=== PATIENT | female | born 1955 | race Caucasian/White ===

== ENCOUNTER 2017-01-13 21:20 | Emergency (ER) | payer MEDICARE, MEDICAID ==
[2017-01-13] MEDS ORDERED: NS 0.9% 1000 ML* 1,000 ML IV ONE (22:29)
[2017-01-13] MEDS ORDERED: Levofloxacin 750 MG IVPREMIX(* 750 MG/150 ML BAG IVPB ONE (22:31)
[2017-01-13] MEDS ORDERED: methylPREDNISolone SOD SUCC* 125 MG 2 ML VIAL IV ONE (22:31)
[2017-01-13] MEDS ORDERED: Albuterol/Ipratropium NEB.SOL* Albuterol 2.5 MG/Ipratropium 0.5 MG 3 ML INH ONE (22:31)
[2017-01-13] MEDS ORDERED: guaiFENesin/CODIEN 100MG-10MG* 5 ML UDC PO ONE (22:53)
[2017-01-14 00:20] LABS: Hematocrit 42 % (35-47); Hemoglobin 13.8 g/dl (12.0-16.0); Mean Corpuscular HGB Conc 33 g/dl (31-36); Mean Corpuscular Hemoglobin 29 pg (27-31); Mean Corpuscular Volume 89 fL (80-97); Mean Platelet Volume 8 um3 (7.4-10.4); Red Blood Count 4.75 10^6/ul (4.0-5.4); Red Cell Distribution Width 14 % (10.5-15); White Blood Count 12.7 10^3/ul (3.5-10.8)
[2017-01-14 00:28] LABS: Albumin 4.1 g/dL (3.2-5.2); BUN/Creatinine Ratio 17.2 (8-20); Calcium 8.7 mg/dL (8.6-10.3); EGFR African American 84.8 (>60); Globulin 3.6 g/dL (2-4); Potassium 3.6 mmol/L (3.5-5.0); Total Bilirubin 0.5 mg/dL (0.2-1.0); Total Protein 7.7 g/dL (6.4-8.9); Troponin I 0.01 ng/mL (<0.04)
[2017-01-14] MEDS ORDERED: Albuterol/Ipratropium NEB.SOL* Albuterol 2.5 MG/Ipratropium 0.5 MG 3 ML INH ONE (00:57)
[2017-01-14] MEDS ORDERED: guaiFENesin/CODIEN 100MG-10MG* 5 ML UDC PO ONE (03:15)
[2017-01-14 04:34] VITALS: BP 133/77
--- NOTE | 2017-01-14 06:36 | ED ---
Agustín, DoctorChetna, scribed for Raven Flores MD on 01/13/17 at 2308 . Shortness of Breath - HPI Summary HPI Summary: 61 year old female arrived to [facility] by ambulance c/o cough for the past two weeks as well as SOB. She reports that her SOB is exacerbated when lying down, and also reports swelling in her lower legs. She recently saw here PCP Dr. Rivers and has been on 5 day Abx beginning four days ago; she has PMHx of asthma and COPD but doesn't regularly take steroids or use oxygen at home. - History of Current Complaint Chief Complaint: EDShortnessOfBreath Time Seen by Provider: 01/13/17 21:48 Hx Obtained From: Patient Onset/Duration: Gradual Onset Current Severity: Moderate Aggrevating Factors: Deep Breaths Associated Signs & Symptoms: Chest Pain w/Cough, Edema - Allergy/Home Medications Allergies/Adverse Reactions: Allergies Allergy/AdvReac Type Severity Reaction Status Date / Time Ampicillin Allergy Severe Swelling Verified 08/13/16 11:54 Penicillins [PCN] Allergy Severe Swelling Verified 08/13/16 11:54 Hydrocodone Allergy Nausea Verified 08/13/16 11:54 Amlodipine AdvReac Shakes Verified 08/13/16 11:54 PMH/Surg Hx/FS Hx/Imm Hx Endocrine/Hematology History: Reports: Hx Thyroid Disease Denies: Hx Diabetes Cardiovascular History: Reports: Hx Congestive Heart Failure, Hx Hypercholesterolemia, Other Cardiovascular Problems/Disorders - cardiac cath 2009 benign Denies: Hx Hypertension, Hx Pacemaker/ICD Respiratory History: Reports: Hx Asthma, Hx Chronic Obstructive Pulmonary Disease (COPD), Hx Sleep Apnea GI History: Reports: Hx Gastroesophageal Reflux Disease - CONTROL WITH MEDS History: Denies: Hx Renal Disease Musculoskeletal History: Reports: Hx Arthritis - KNEES, NECK, Other Musculoskeletal History - 3 CRACKED VERTEBRAES IN BACK, LUMBAR REGION, NO TREATMENT Sensory History: Reports: Hx Contacts or Glasses Denies: Hx Hearing Aid Opthamlomology History: Reports: Hx Contacts or Glasses Psychiatric History: Denies: Hx Panic Disorder - Cancer History Cancer Type, Location and Year: thyroid Hx Chemotherapy: No Hx Radiation Therapy: No - Surgical History Surgery Procedure, Year, and Place: hysterectomy 1979- 09/21/15- 12/22/15 BILATERAL KNEE REPLACEMENTS. bilateral carpal tunnel. lt knee surgery. cosmetic ear surgery but did not work per pt. thyroid removal due to ca Hx Anesthesia Reactions: No Infectious Disease History: No Infectious Disease History: Denies: Traveled Outside the [place] in Last 30 Days - Family History Known Family History: Positive: Cardiac Disease, Respiratory Disease - Social History Alcohol Use: None Substance Use Type: Reports: None Hx Tobacco Use: No Smoking Status (MU): Heavy Every Day Tobacco Smoker Type: Cigarettes Amount Used/How Often: 1/2 ppd Length of Time of Smoking/Using Tobacco: > 40 years Have You Smoked in the Last Year: No Review of Systems Negative: Fever Positive: Chest Pain Positive: Shortness Of Breath, Cough All Other Systems Reviewed And Are Negative: Yes Physical Exam Triage Information Reviewed: Yes Vital Signs On Initial Exam: Initial Vitals Temp Pulse Resp BP Pulse Ox 98.6 F 93 20 116/64 94 01/13/17 21:38 01/13/17 21:38 01/13/17 21:38 01/13/17 21:38 01/13/17 21:38 Vital Signs Reviewed: Yes Appearance: Positive: Well-Appearing, No Pain Distress Skin: Positive: Warm, Skin Color Reflects Adequate Perfusion, Dry Eyes: Positive: EOMI, OSITO ENT: Positive: Pharynx normal, TMs normal Neck: Positive: Supple, Nontender Respiratory/Lung Sounds: Positive: Wheezes - loud expiratory wheezing. Negative : Rales, Rhonchi Cardiovascular: Positive: RRR. Negative: Murmur, Rub Abdomen Description: Positive: Nontender, Soft. Negative: Distended, Guarding Musculoskeletal: Positive: Strength/ROM Intact Neurological: Positive: Sensory/Motor Intact, Alert, Oriented to Person Place, Time, CN Intact II-III Psychiatric: Positive: Affect/Mood Appropriate Diagnostics - Vital Signs Vital Signs Temp Pulse Resp BP Pulse Ox 01/13/17 22:39 95 20 98 01/13/17 21:38 98.6 F 93 20 116/64 94 - Laboratory Lab Results: Lab Results 01/13/17 01/13/17 01/13/17 Range/Units 23:35 23:35 23:35 WBC 12.7 H (3.5-10.8) 10^3/ul RBC 4.75 (4.0-5.4) 10^6/ul Hgb 13.8 (12.0-16.0) g/dl Hct 42 (35-47) % MCV 89 (80-97) fL MCH 29 (27-31) pg MCHC 33 (31-36) g/dl RDW 14 (10.5-15) % Plt Count 286 (150-450) 10^3/ul MPV 8 (7.4-10.4) um3 Neut % (Auto) 49.9 (38-83) % Lymph % (Auto) 31.4 (25-47) % [place] % (Auto) 9.4 H (1-9) % Eos % (Auto) 8.2 H (0-6) % Baso % (Auto) 1.1 (0-2) % Absolute Neuts (auto) 6.3 (1.5-7.7) 10^3/ul Absolute Lymphs (auto) 4.0 (1.0-4.8) 10^3/ul Absolute Monos (auto) 1.2 H (0-0.8) 10^3/ul Absolute Eos (auto) 1.0 H (0-0.6) 10^3/ul Absolute Basos (auto) 0.1 (0-0.2) 10^3/ul Absolute Nucleated RBC 0.01 10^3/ul Nucleated RBC % 0.1 Sodium 138 (133-145) mmol/L Potassium 3.6 (3.5-5.0) mmol/L Chloride 104 (101-111) mmol/L Carbon Dioxide 26 (22-32) mmol/L Anion Gap 8 (2-11) mmol/L BUN 15 (6-24) mg/dL Creatinine 0.87 (0.51-0.95) mg/dL Est GFR ( Amer) 84.8 (>60) Est GFR (Non-Af Amer) 66.0 (>60) BUN/Creatinine Ratio 17.2 (8-20) Glucose 104 H (70-100) mg/dL Lactic Acid 1.0 (0.5-2.0) mmol/L Calcium 8.7 (8.6-10.3) mg/dL Total Bilirubin 0.50 (0.2-1.0) mg/dL AST 16 (13-39) U/L ALT 14 (7-52) U/L Alkaline Phosphatase 58 (34-104) U/L Troponin I 0.01 (<0.04) ng/mL Total Protein 7.7 (6.4-8.9) g/dL Albumin 4.1 (3.2-5.2) g/dL Globulin 3.6 (2-4) g/dL Albumin/Globulin Ratio 1.1 (1-3) Result Diagrams: 01/13/17 23:35 01/13/17 23:35 Lab Statement: Any lab studies that have been ordered have been reviewed, and results considered in the medical decision making process. - Radiology Chest X-Ray Radiology Interpretation Completed By: ED Physician - Negative - EKG 00:19 Cardiac Rate: NL EKG Rhythm: Sinus Rhythm EKG Interpretation: Diffuse T abnormality, LVH Re-Evaluation - Re-Evaluation First Eval Re-Evaluation Time: 01:20 Change: Worse - 90% Oxygen Saturation after taken off oxygen. Pt will be admitted for further care. Second Eval Re-Evaluation Time: 02:50 Change: Improved - Pt feeling much better, able to ambulate. Discussed discharge , pt agreed. Course/Dx - Course Course Of Treatment: Pt with several days of sob and cough, seen by pmd and started on abx, but still with sob. xray neg, mild elevation of wbc. Pt started on steroids and received several nebs here with good results, obv admission ordered but pt wanted to try it at home, with the prednisone and levaquin, - Diagnoses Provider Diagnoses: COPD exacerbation - Physician Notifications Discussed Care of Patient With: 01:15 - Disucssed care of pt with Dr. Berger ( hospitalist). Agrees to admit pt. Discharge - Discharge Plan Condition: Stable Disposition: HOME Prescriptions: Guaifenesin-Codeine [Codeine/Guaifenesin 100-10 mg/5Ml] 1 ac PO Q4HR PRN #14 dose MDD 6 PRN Reason: Cough Levofloxacin TAB* [Levaquin TAB*] 750 mg PO DAILY #6 tab Prednisone [Deltasone] 60 mg PO DAILY #12 tab Patient Education Materials: COPD (Chronic Obstructive Pulmonary Disease) (ED) Referrals: Portillo Rivers MD [Primary Care Provider] - Additional Instructions: Follow up with PCP (Dr. Rivers) in 1-2 days. The documentation as recorded by the Doctor amanda Tahera accurately reflects the service I personally performed and the decisions made by , Raven Flores MD.
--- NOTE | 2017-01-14 07:33 | RAD ---
INDICATION: Cough x2 weeks, worse when lying down. COMPARISON: Most recent comparison chest x-rays dated August 19, 2016 TECHNIQUE: PA and lateral views of the chest were obtained. FINDINGS: The heart and mediastinum are normal in size and contour. The lungs are grossly clear. There is no evidence of large pleural effusion. Visualized bones are normal for the patient's age. There is no radiographic evidence of free air beneath the diaphragm IMPRESSION: No radiographic evidence of acute cardiopulmonary disease.
== END 2017-01-14 04:30 | disposition home or self-care (01) ==
LOC: ED 21:20
DX: J44.1 Chronic obstructive pulmonary disease with (acute) exacerbation (principal); R07.9 Chest pain, unspecified; R06.02 Shortness of breath; F17.210 Nicotine dependence, cigarettes, uncomplicated
CPT/HCPCS: 36415; 71020; 80053; 83605; 84484; 85025; 87040; 93005; 94640; 96374; 99284; A9270-GY; J2930

== ENCOUNTER 2019-01-08 16:34 | Emergency (ER) | payer MEDICARE, MEDICAID ==
[2019-01-08] MEDS ORDERED: oxyCODONE TAB* 5 MG TAB PO ONE (20:34)
--- NOTE | 2019-01-08 20:35 | ED ---
Lower Extremity - HPI Summary HPI Summary: Patient complains of chronic left knee pain times months, with worsening pain over the past 1 month. Denies trauma. Patient has been evaluated by orthopedics in [place], has appointment tomorrow for pain management. Patient denies any other symptoms pain or injury. Denies taking any pain medication for knee pain. - History of Current Complaint Chief Complaint: EDExtremityLower Stated Complaint: "MY LEFT KNEE" PER PT Time Seen by Provider: 01/08/19 19:12 Hx Obtained From: Patient Mechanism Of Injury: Unknown Onset of Pain: Days Onset/Duration: Weeks Severity Initially: Severe Severity Currently: Severe Pain Intensity: 10 Pain Scale Used: 0-10 Numeric Timing: Constant Location: Is Discrete @ Character Of Pain: Aching, Throbbing Associated Signs And Symptoms: Positive: Negative Aggravating Factor(s): Ambulation, Weight Bearing Alleviating Factor(s): Rest Able to Bear Weight: Yes - Allergies/Home Medications Allergies/Adverse Reactions: Allergies Allergy/AdvReac Type Severity Reaction Status Date / Time MS Ampicillin [Ampicillin] Allergy Severe Swelling Verified 01/19/17 11:29 MS Penicillins [PCN] Allergy Severe Swelling Verified 01/19/17 11:29 MS Hydrocodone [Hydrocodone] Allergy Nausea Verified 01/19/17 11:29 MS Amlodipine [Amlodipine] AdvReac Shakes Verified 01/19/17 11:29 PMH/Surg Hx/FS Hx/Imm Hx Endocrine/Hematology History: Reports: Hx Thyroid Disease Denies: Hx Diabetes Cardiovascular History: Reports: Hx Congestive Heart Failure, Hx Hypercholesterolemia, Other Cardiovascular Problems/Disorders - cardiac cath 2009 benign Denies: Hx Hypertension, Hx Pacemaker/ICD Respiratory History: Reports: Hx Asthma, Hx Chronic Obstructive Pulmonary Disease (COPD), Hx Sleep Apnea GI History: Reports: Hx Gastroesophageal Reflux Disease - CONTROL WITH MEDS History: Denies: Hx Renal Disease Musculoskeletal History: Reports: Hx Arthritis - KNEES, NECK, Other Musculoskeletal History - 3 CRACKED VERTEBRAES IN BACK, LUMBAR REGION, NO TREATMENT Sensory History: Reports: Hx Contacts or Glasses Denies: Hx Hearing Aid Opthamlomology History: Reports: Hx Contacts or Glasses Psychiatric History: Denies: Hx Panic Disorder - Cancer History Cancer Type, Location and Year: thyroid Hx Chemotherapy: No Hx Radiation Therapy: No - Surgical History Surgery Procedure, Year, and Place: hysterectomy 1979- 09/21/15- 12/22/15 BILATERAL KNEE REPLACEMENTS. bilateral carpal tunnel. lt knee surgery. cosmetic ear surgery but did not work per pt. thyroid removal due to ca Hx Anesthesia Reactions: No Infectious Disease History: No Infectious Disease History: Denies: Traveled Outside the [place] in Last 30 Days - Family History Known Family History: Positive: Cardiac Disease, Respiratory Disease - Social History Alcohol Use: None Substance Use Type: Reports: None Hx Tobacco Use: No Smoking Status (MU): Heavy Every Day Tobacco Smoker Type: Cigarettes Amount Used/How Often: 1/2 ppd Length of Time of Smoking/Using Tobacco: > 40 years Have You Smoked in the Last Year: No Review of Systems Constitutional: Negative Eyes: Negative ENT: Negative Cardiovascular: Negative Respiratory: Negative Gastrointestinal: Negative Genitourinary: Negative Musculoskeletal: Negative Skin: Other Neurological: Negative Psychological: Normal All Other Systems Reviewed And Are Negative: Yes Physical Exam - Summary Physical Exam Summary: No swelling, erythema, ecchymosis, deformity noted to left knee. No effusion. 90 of flexion and extension with some pain. PMS intact distally. Triage Information Reviewed: Yes Vital Signs On Initial Exam: Initial Vitals Temp Pulse Resp BP Pulse Ox 96.6 F 69 18 150/69 97 01/08/19 16:39 01/08/19 16:39 01/08/19 16:39 01/08/19 16:39 01/08/19 16:39 Vital Signs Reviewed: Yes Appearance: Positive: Well-Appearing Skin: Positive: Warm Head/Face: Positive: Normal Head/Face Inspection Eyes: Positive: Normal Neck: Positive: Supple Respiratory/Lung Sounds: Positive: Clear to Auscultation Cardiovascular: Positive: Normal Abdomen Description: Positive: Nontender Musculoskeletal: Positive: Normal Neurological: Positive: Normal Psychiatric: Positive: Normal AVPU Assessment: Alert - Yenifer Coma Scale Best Eye Response: 4 - Spontaneous Best Motor Response: 6 - Obeys Commands Best Verbal Response: 5 - Oriented Coma Scale Total: 15 Diagnostics - Vital Signs Vital Signs Temp Pulse Resp BP Pulse Ox 01/08/19 16:39 96.6 F 69 18 150/69 97 - Laboratory Lab Statement: Any lab studies that have been ordered have been reviewed, and results considered in the medical decision making process. Lower Extremity Course/Dx - Course Course Of Treatment: Patient complains of chronic left knee pain times months, with worsening pain over the past 1 month. Denies trauma. Patient has been evaluated by orthopedics in [place], has appointment tomorrow for pain management. Patient denies any other symptoms pain or injury. Denies taking any pain medication for knee pain. Physical exam:No swelling, erythema, ecchymosis, deformity noted to left knee. No effusion. 90 of flexion and extension with some pain. PMS intact distally. Vital signs within normal limits. X-ray left knee unremarkable for acute process. Per [facility] pt has multiple prescriptions for opiates with multiple providers over the past 6 months. Advised patient to follow up with her orthopedics appointment tomorrow as scheduled. - Diagnoses Provider Diagnoses: Chronic knee pain Discharge - Sign-Out/Discharge Documenting (check all that apply): Patient Departure Patient Received Moderate/Deep Sedation with Procedure: No - Discharge Plan Condition: Stable Disposition: HOME Patient Education Materials: Knee Pain (ED) Referrals: No Primary Care Phys,NOPCP [Primary Care Provider] - Additional Instructions: Follow-up with your orthopedic appointment as scheduled tomorrow for further evaluation. Return to the ED for any new or worsening symptoms. - Billing Disposition and Condition Condition: STABLE Disposition: Home
[2019-01-08 21:15] VITALS: BP 148/87
== END 2019-01-08 20:47 | disposition home or self-care (01) ==
LOC: ED 16:34
DX: M25.562 Pain in left knee (principal); G89.29 Other chronic pain; F17.210 Nicotine dependence, cigarettes, uncomplicated; E07.9 Disorder of thyroid, unspecified; I50.9 Heart failure, unspecified; E78.00 Pure hypercholesterolemia, unspecified; J44.9 Chronic obstructive pulmonary disease, unspecified; K21.9 Gastro-esophageal reflux disease without esophagitis
CPT/HCPCS: 99281

== ENCOUNTER 2019-03-20 13:09 | Emergency (ER) | payer MEDICARE, MEDICAID ==
[2019-03-20] MEDS ORDERED: Albuterol/Ipratropium NEB.SOL* Albuterol 2.5 MG/Ipratropium 0.5 MG 3 ML INH ONE (13:29)
--- NOTE | 2019-03-20 13:51 | ED ---
Shortness of Breath - HPI Summary HPI Summary: This patient is a 63 year old F brought in by EMS presenting to [facility] with a chief complaint of shortness of breath. The patient reports being sick from . She reports having a cough that hurts in her L anterior chest and ribs when she coughs. Per triage, the pain is described as it feels like an elephant is sitting on my chest and is rated a 10/10 in severity. The patients cough is nonproductive. She denies any fevers, vomiting, diarrhea, and nausea. She was directed to a diet consultant from her PCP but cannot go until April and was directed here for a CXR. Symptoms are alleviated by nothing. The symptoms are aggravated by nothing. The patient has a Hx of COPD but was not directed to use an 02 tank as she is typically at 95% saturation on room air. - History of Current Complaint Chief Complaint: EDShortnessOfBreath Time Seen by Provider: 03/20/19 13:15 Hx Obtained From: Patient, EMS Onset/Duration: Lasting Weeks - 2, Still Present Timing: Constant Current Severity: Severe Dyspnea At: Rest Aggrevating Factors: Nothing Alleviating Factors: Nothing Associated Signs & Symptoms: Negative - Negative: vomiting, diarrhea, nausea, Cough (Nonproductive) - Positive, Chest Pain w/Cough, Fever - Negative - Allergy/Home Medications Allergies/Adverse Reactions: Allergies Allergy/AdvReac Type Severity Reaction Status Date / Time MS Ampicillin [Ampicillin] Allergy Severe Swelling Verified 01/19/17 11:29 MS Penicillins [PCN] Allergy Severe Swelling Verified 01/19/17 11:29 MS Hydrocodone [Hydrocodone] Allergy Nausea Verified 01/19/17 11:29 MS Amlodipine [Amlodipine] AdvReac Shakes Verified 01/19/17 11:29 Home Medications: Home Medications Albuterol 2.5MG/3ML (0.083%)* [Ventolin 2.5 MG/3 ML NEB.MARIZA*] 2.5 mg INH Q6H PRN 03/20/19 [History Confirmed 03/20/19] Albuterol HFA INHALER* [Ventolin HFA Inhaler*] 2 puff INH BID PRN 03/20/19 [ History Confirmed 03/20/19] Levothyroxine TAB* [Synthroid 150 MCG TAB*] 150 mcg PO DAILY 03/20/19 [History Confirmed 03/20/19] Sertraline* [Zoloft*] 100 mg PO DAILY 03/20/19 [History Confirmed 03/20/19] PMH/Surg Hx/FS Hx/Imm Hx Previously Healthy: No Endocrine/Hematology History: Reports: Hx Thyroid Disease Denies: Hx Diabetes Cardiovascular History: Reports: Hx Congestive Heart Failure, Hx Hypercholesterolemia, Other Cardiovascular Problems/Disorders - cardiac cath 2009 benign Denies: Hx Hypertension, Hx Pacemaker/ICD Respiratory History: Reports: Hx Asthma, Hx Chronic Obstructive Pulmonary Disease (COPD), Hx Sleep Apnea GI History: Reports: Hx Gastroesophageal Reflux Disease - CONTROL WITH MEDS History: Denies: Hx Renal Disease Musculoskeletal History: Reports: Hx Arthritis - KNEES, NECK, Other Musculoskeletal History - 3 CRACKED VERTEBRAES IN BACK, LUMBAR REGION, NO TREATMENT Sensory History: Reports: Hx Contacts or Glasses Denies: Hx Hearing Aid Opthamlomology History: Reports: Hx Contacts or Glasses Psychiatric History: Denies: Hx Panic Disorder - Cancer History Cancer Type, Location and Year: thyroid Hx Chemotherapy: No Hx Radiation Therapy: No - Surgical History Surgery Procedure, Year, and Place: hysterectomy 1979- 09/21/15- 12/22/15 BILATERAL KNEE REPLACEMENTS. bilateral carpal tunnel. lt knee surgery. cosmetic ear surgery but did not work per pt. thyroid removal due to ca Hx Anesthesia Reactions: No Infectious Disease History: No Infectious Disease History: Denies: Traveled Outside the [place] in Last 30 Days - Family History Known Family History: Positive: Cardiac Disease, Respiratory Disease - Social History Alcohol Use: None Hx Substance Use: No Substance Use Type: Reports: None Hx Tobacco Use: Yes Smoking Status (MU): Light Every Day Tobacco Smoker Type: Cigarettes Amount Used/How Often: 1/2 ppd Length of Time of Smoking/Using Tobacco: > 40 years Have You Smoked in the Last Year: No Review of Systems Negative: Fever Positive: Chest Pain - Secondary to coughing Positive: Shortness Of Breath, Cough - nonproductive Negative: Vomiting, Diarrhea, Nausea All Other Systems Reviewed And Are Negative: Yes Physical Exam - Summary Physical Exam Summary: VITAL SIGNS: Reviewed. GENERAL: Patient is a well-developed and nourished Female who is lying comfortable in the stretcher. Patient is not in any acute respiratory distress. She is able to speak clearly. HEAD AND FACE: No signs of trauma. No ecchymosis, hematomas or skull depressions. No sinus tenderness. EYES: PERRLA, EOMI x 2, No injected conjunctiva, no nystagmus. EARS: Hearing grossly intact. Ear canals and tympanic membranes are within normal limits. MOUTH: Oropharynx within normal limits. NECK: Supple, trachea is midline, no adenopathy, no JVD, no carotid bruit, no c- spine tenderness, neck with full ROM. CHEST: Symmetric, no tenderness at palpation LUNGS: Crackles are evident in the base of the lungs. Diffuse wheezing. CVS: Regular rate and rhythm, S1 and S2 present, no murmurs or gallops appreciated. ABDOMEN: Soft, non-tender. No signs of distention. No rebound no guarding, and no masses palpated. Bowel sounds are normal. EXTREMITIES: FROM in all major joints, no edema, no cyanosis or clubbing. NEURO: Alert and oriented x 3. No acute neurological deficits. Speech is normal and follows commands. SKIN: Dry and warm Triage Information Reviewed: Yes Vital Signs On Initial Exam: Initial Vitals Temp Pulse Resp BP Pulse Ox 98.8 F 120 20 133/79 92 03/20/19 13:16 03/20/19 13:16 03/20/19 13:16 03/20/19 13:16 03/20/19 13:16 Vital Signs Reviewed: Yes Diagnostics - Vital Signs Vital Signs Temp Pulse Resp BP Pulse Ox 03/20/19 13:33 88 14 92 03/20/19 13:16 98.8 F 120 20 133/79 92 - Laboratory Result Diagrams: 03/20/19 13:42 03/20/19 13:42 Lab Statement: Any lab studies that have been ordered have been reviewed, and results considered in the medical decision making process. - Radiology CXR Radiology Interpretation Completed By: Radiologist Summary of Radiographic Findings: No active cardiopulmonary disease is noted. ED Physician has reviewed this report. - EKG 1351 Cardiac Rate: NL EKG Rhythm: Sinus Rhythm Summary of EKG Findings: Normal sinus rhythm at [address] elevation. Re-Evaluation - Re-Evaluation First Eval Re-Evaluation Time: 16:29 Change: Improved Comment: Patient was informed about discharge plan. She is agreeable and has no wheezing upon discharge. Course/Dx - Course Assessment/Plan: This patient is a 63-year-old female who presents to the emergency department with chief complaint of shortness of breath. She reports that she has been having the symptoms for the last 2 weeks including and productive cough at without any fevers. She went to see the primary care physician today and they sent her here for further workup and management. The patient has past medical history significant for COPD without any oxygen, hypothyroidism and is status post left knee arthroplasty. Test results without any significant abnormality except for glucose of 119, calcium 7.9 and CRP of 29.16. Chest x-ray impression: No active cardiopulmonary disease. In the ER course physical exam the patient has diffuse wheezing. The patient was given multiple DuoNebs and Solu-Medrol and the symptoms have significantly improved. ABG shows a pH of 7.42, PCO2 37, PO2 76, O2 sat is 98.3. Reexamination at 16:30 the lungs are clear to auscultation bilaterally without any wheezing. Patient is eating and drinking without any nausea and vomiting. I discussed all the findings and test results with the patient. Patient was instructed to return to the emergency room immediately if any of the symptoms return worsens. Plan of care was discussed with the patient and understands and agrees. All questions were answered at patient satisfaction. There were no further complaints or concerns. Lung exam before discharge: CTA B/L. Good air exchange. No wheezing or crackles heard. CVS: S1 and S2 present. No murmurs appreciated. Patient is alert and oriented x 3. Patient is hemodynamically stable. Patient will be discharged home with follow up PCP in the next 2-3 days - Diagnoses Provider Diagnoses: COPD exacerbation Discharge - Sign-Out/Discharge Documenting (check all that apply): Patient Departure - discharge Patient Received Moderate/Deep Sedation with Procedure: No - Discharge Plan Condition: Stable Disposition: HOME Prescriptions: guaiFENesin ER TAB [Mucinex*] 600 mg PO BID #6 tab.er predniSONE TAB* [Deltasone 20 MG TAB*] 40 mg PO DAILY #8 tab Patient Education Materials: COPD (Chronic Obstructive Pulmonary Disease) (ED) Referrals: [facility] [Outside] - 3 Days Additional Instructions: FOLLOW UP WITH YOUR PRIMARY CARE PROVIDER WITHIN 3 DAYS. RETURN TO THE ED FOR ANY WORSENING OR NEW SYMPTOMS. - Billing Disposition and Condition Condition: STABLE Disposition: Home - Attestation Statements Document Initiated by Scribe: Yes Documenting Scribe: Mathew Medina Provider For Whom Scribe is Documenting (Include Credential): Willis Hardin MD Scribe Attestation: Mathew Randolph and Tarik Medina, scribed for Willis Hardin MD on 03/22/19 at 1147. Scribe Documentation Reviewed: Yes Provider Attestation: The documentation as recorded by the scribe, Mathew Schultz and Tarik Medina accurately reflects the service I personally performed and the decisions made by , Willis Hardin MD Status of Scribe Document: Viewed
[2019-03-20 14:08] LABS: ABS Eosinophils 0.4 10^3/ul (0-0.6); ABS Lymphocytes 3.1 10^3/ul (1.0-4.8); ABS Monocytes 1.1 10^3/ul (0-0.8); ABS Neutrophils 4.5 10^3/ul (1.5-7.7); Eosinophil % 4.9 %; Hematocrit 39 % (35-47); Hemoglobin 13.1 g/dL (12.0-16.0); Lymphocyte % 33.8 %; Mean Corpuscular HGB Conc 34 g/dL (31-36); Mean Corpuscular Hemoglobin 29 pg (27-31); Mean Corpuscular Volume 86 fL (80-97); Mean Platelet Volume 7.7 fL (7.4-10.4); Nucleated Red Blood Cells % 0.1; Platelet Count 265 10^3/uL (150-450); Red Cell Distribution Width 14 % (10.5-15)
[2019-03-20 14:22] LABS: Albumin 3.9 g/dL (3.2-5.2); Albumin/Globulin Ratio 1.3 (1-3); BUN/Creatinine Ratio 13.7 (8-20); C Reactive Protein 29.16 mg/L (<8.01); Calcium 7.9 mg/dL (8.6-10.3); EGFR African American 71.7 (>60); EGFR Non-African American 59.2 (>60); Globulin 3.1 g/dL (2-4); Potassium 3.5 mmol/L (3.5-5.0); Total Bilirubin 0.5 mg/dL (0.2-1.0)
[2019-03-20] MEDS ORDERED: Ketorolac INJ* 30 MG/ML 1 ML VIAL IV PUSH ONE (14:48)
[2019-03-20] MEDS ORDERED: methylPREDNISolone 125 MG* 2 ML VIAL IV ONE (15:42)
[2019-03-20 17:07] VITALS: BP 134/76
== END 2019-03-20 17:06 | disposition home or self-care (01) ==
LOC: ED 13:09
DX: J44.1 Chronic obstructive pulmonary disease with (acute) exacerbation (principal); R05 Cough; E03.9 Hypothyroidism, unspecified; K21.9 Gastro-esophageal reflux disease without esophagitis; Z96.653 Presence of artificial knee joint, bilateral; Z88.5 Allergy status to narcotic agent; Z88.0 Allergy status to penicillin; Z88.8 Allergy status to other drugs, medicaments and biological substances; F17.210 Nicotine dependence, cigarettes, uncomplicated
CPT/HCPCS: 36415; 71046; 80053; 82550; 82553; 82803; 83605; 83880; 84484; 85025; 86140; 87040; 93005; 96374; 96375; 99283; A9270-GY; J1885; J2930

== ENCOUNTER 2019-04-16 18:32 | Inpatient (IN) | payer MEDICARE, MEDICAID ==
--- NOTE | 2019-04-16 18:58 | ED ---
Complex/Multi-Sys Presentation - HPI Summary HPI Summary: A 64 y/o F brought in by ambulance presents to ED c/o SOB onset last night. Associated sx: fatigue, CP, fever, cough, cold flashes, face flushing. Shes been resting all day today due to feeling fatigued. Patient sleeps on her side. She took all her medications today. She does not have home O2. - History Of Current Complaint Chief Complaint: EDChestPainROMI Hx Obtained From: Patient Onset/Duration: Lasting Days - yesterday, Still Present Timing: Constant Associated Signs And Symptoms: Positive: SOB, Cough, Chest Pain, Fever, Other - pos: fatigue, cold flashes, face flushing - Allergies/Home Medications Allergies/Adverse Reactions: Allergies Allergy/AdvReac Type Severity Reaction Status Date / Time amlodipine Allergy Constipatio Verified 04/16/19 18:55 n ampicillin Allergy Swelling Verified 04/16/19 18:55 hydrocodone Allergy Nausea Verified 04/16/19 18:55 Penicillins Allergy Swelling Verified 04/16/19 18:55 PMH/Surg Hx/FS Hx/Imm Hx Previously Healthy: No Endocrine/Hematology History: Reports: Hx Thyroid Disease Denies: Hx Diabetes Cardiovascular History: Reports: Hx Congestive Heart Failure, Hx Hypercholesterolemia, Other Cardiovascular Problems/Disorders - cardiac cath 2009 benign Denies: Hx Hypertension, Hx Pacemaker/ICD Respiratory History: Reports: Hx Asthma, Hx Chronic Obstructive Pulmonary Disease (COPD), Hx Sleep Apnea GI History: Reports: Hx Gastroesophageal Reflux Disease - CONTROL WITH MEDS History: Denies: Hx Renal Disease Musculoskeletal History: Reports: Hx Arthritis - KNEES, NECK, Other Musculoskeletal History - 3 CRACKED VERTEBRAES IN BACK, LUMBAR REGION, NO TREATMENT Sensory History: Reports: Hx Contacts or Glasses Denies: Hx Hearing Aid Opthamlomology History: Reports: Hx Contacts or Glasses Psychiatric History: Denies: Hx Panic Disorder - Cancer History Cancer Type, Location and Year: thyroid Hx Chemotherapy: No Hx Radiation Therapy: No - Surgical History Surgery Procedure, Year, and Place: hysterectomy 1979- 09/21/15- 12/22/15 BILATERAL KNEE REPLACEMENTS. bilateral carpal tunnel. lt knee surgery. cosmetic ear surgery but did not work per pt. thyroid removal due to ca Hx Anesthesia Reactions: No Infectious Disease History: No Infectious Disease History: Denies: Traveled Outside the [place] in Last 30 Days - Family History Known Family History: Positive: Cardiac Disease, Respiratory Disease - Social History Occupation: Disabled Lives: Alone Alcohol Use: None Hx Substance Use: No Substance Use Type: Reports: None Hx Tobacco Use: Yes Smoking Status (MU): Light Every Day Tobacco Smoker Type: Cigarettes Amount Used/How Often: 1/2 ppd Length of Time of Smoking/Using Tobacco: > 40 years Have You Smoked in the Last Year: No Review of Systems Positive: Fever, Fatigue, Other - pos: cold flashes, face flushed Positive: Chest Pain Positive: Shortness Of Breath, Cough All Other Systems Reviewed And Are Negative: Yes Physical Exam - Summary Physical Exam Summary: Appearance: The patient is well-nourished in no acute distress and in no acute pain. Skin: The skin is warm and dry and skin color reflects adequate perfusion. HEENT: The head is normocephalic and atraumatic. The pupils are equal and reactive. The conjunctivae are clear and without drainage. Nares are patent and without drainage. Mouth reveals moist mucous membranes and the throat is without erythema and exudate. The external ears are intact. The ear canals are patent and without drainage. The tympanic membranes are intact. Neck: the neck is supple with full range of motion and non-tender. There are no carotid bruits. There is no neck vein distension. Respiratory: Chest is non-tender. Lungs sounds are reduced. Cardiovascular: Heart is tachy. There is no murmur or rub auscultated. There is peripheral edema. Pulses are symmetrical and equal. Abdomen: The abdomen is soft and non-tender. There are normal bowel sounds heard in all four quadrants and there is no organomegaly palpated. Musculoskeletal: There is no back tenderness noted. Extremities are non-tender with full range of motion. There is good capillary refill. There is peripheral edema. No calf tenderness elicited. Neurological: Patient is alert and oriented to person, place and time. The patient has symmetrical motor strength in all four extremities. Cranial nerves are grossly intact. Deep tendon reflexes are symmetrical and equal in all four extremities. Psychiatric: The patient has an appropriate affect and does not exhibit any anxiety or depression. Triage Information Reviewed: Yes Vital Signs On Initial Exam: Initial Vitals Temp Pulse Resp BP Pulse Ox 97 F 106 22 87/52 94 04/16/19 18:48 04/16/19 18:48 04/16/19 18:48 04/16/19 18:48 04/16/19 18:48 Vital Signs Reviewed: Yes Diagnostics - Vital Signs Vital Signs Temp Pulse Resp BP Pulse Ox 04/16/19 18:53 96/59 04/16/19 18:48 97 F 106 22 87/52 94 - Laboratory Result Diagrams: 04/16/19 19:16 04/16/19 19:16 Lab Statement: Any lab studies that have been ordered have been reviewed, and results considered in the medical decision making process. - Radiology CXR Radiology Interpretation Completed By: ED Physician Summary of Radiographic Findings: R sided infiltrate, possible L base infiltrate. - EKG 1911 Cardiac Rate: Tachycardia - 104 bpm EKG Rhythm: Sinus Tachycardia ST Segment: Normal Ectopy: None Summary of EKG Findings: No STEMI. Re-Evaluation - Re-Evaluation 1 Re-Evaluation Time: 20:04 Change: Improved Comment: Discussing results with patient and plans for admission. She is agreeable with this. Patient is doing better on O2. Complex Multi-Symp Course/Dx Course Of Treatment: Ms. Coats presented meeting septic criteria. Her chief complaint was shortness of breath. She was not toxic in appearance but her blood pressure was soft in the 80s and her heart rate was slightly over 100. She was afebrile. Portable chest x-ray showed an infiltrate on the right. And her blood showed a leukocytosis of 28,000. She was given 30 cc/kg of normal saline as well as Levaquin in the emergency department. I asked the hospitalist to evaluate her. - Diagnoses Provider Diagnoses: Sepsis, PNA (pneumonia) - Physician Notifications Discussed Care Of Patient With: Payal Medrano - hospital Time Discussed With Above Provider: 20:00 Instructed by Provider To: Admit As Inpatient - Critical Care Time Critical Care Time: 30-74 min Discharge - Sign-Out/Discharge Documenting (check all that apply): Patient Departure - ADMIT Patient Received Moderate/Deep Sedation with Procedure: No - Discharge Plan Condition: Fair Disposition: ADMITTED TO [facility] Referrals: No Primary Care Phys,NOPCP [Primary Care Provider] - - Billing Disposition and Condition Condition: FAIR Disposition: Admitted to [facility] - Attestation Statements Document Initiated by Scribe: Yes Documenting Scribe: Analilia Hall Provider For Whom Scribe is Documenting (Include Credential): Dr. Doroteo Salinas MD Scribe Attestation: I, Analilia Hall, scribed for Dr. Doroteo Salinas MD on 04/16/19 at 2207. Scribe Documentation Reviewed: Yes Provider Attestation: The documentation as recorded by the dawnibe, Analilia Hall accurately reflects the service I personally performed and the decisions made by me, Dr. Doroteo Salinas MD Status of Scribe Document: Viewed
[2019-04-16] MEDS ORDERED: NS 0.9% 1000 ML** 1,000 ML IV ONE ×3 (19:01→19:23)
[2019-04-16] MEDS ORDERED: Levofloxacin 750 MG IVPREMIX(* 750 MG/150 ML BAG IVPB ONE (19:20)
[2019-04-16 19:28] LABS: Hematocrit 39 % (35-47); Hemoglobin 13.3 g/dL (12.0-16.0); Mean Corpuscular HGB Conc 34 g/dL (31-36); Mean Corpuscular Hemoglobin 29 pg (27-31); Mean Corpuscular Volume 85 fL (80-97); Mean Platelet Volume 7.9 fL (7.4-10.4); Platelet Count 276 10^3/uL (150-450); Red Cell Distribution Width 14 % (10-15); White Blood Count 28.2 10^3/uL (3.5-10.8)
[2019-04-16 19:34] LABS: INR 1.57 (0.82-1.09)
[2019-04-16 19:47] LABS: Troponin I 0.01 ng/mL (<0.04)
[2019-04-16 19:48] LABS: Albumin 3.6 g/dL (3.2-5.2); BUN/Creatinine Ratio 12.7 (8-20); C Reactive Protein 169.56 mg/L (<8.01); Calcium 8.3 mg/dL (8.6-10.3); EGFR African American 55.6 (>60); Globulin 3.5 g/dL (2-4); Potassium 3.3 mmol/L (3.5-5.0); Total Bilirubin 1.1 mg/dL (0.2-1.0); Total Protein 7.1 g/dL (6.4-8.9)
[2019-04-16 19:50] LABS: ABS Basophils 0.2 10^3/ul (0-0.2); ABS Lymphocytes 3.6 10^3/ul (1.0-4.8); ABS Monocytes 2.6 10^3/ul (0-0.8); ABS Neutrophils 21.8 10^3/ul (1.5-7.7); Eosinophil % 0.1 %; Lymphocyte % 12.8 %
[2019-04-16] MEDS ORDERED: Ketorolac INJ* 30 MG/ML 1 ML VIAL IV PUSH ONE (20:04)
[2019-04-16] MEDS ORDERED: Acetaminophen TAB* 325 MG PO PRN (21:14)
[2019-04-16] MEDS ORDERED: Albuterol 2.5 MG/3 ML NEB.SOL* (0.083%) INH PRN (21:14)
[2019-04-16] MEDS ORDERED: Azithromycin 500 mg/250 ml NS 500 MG/250 ML BAG IVPB ONE (21:14)
[2019-04-16] MEDS ORDERED: Benzonatate CAP* 100 MG PO PRN ×2 (21:14)
[2019-04-16] MEDS ORDERED: Ondansetron INJ* 2 MG/ML VIAL IV PRN (21:14)
[2019-04-16] MEDS ORDERED: methylPREDNISolone SOD 40 MG* 1 ML VIAL IV SCH (22:00)
[2019-04-16] MEDS ORDERED: Heparin VIAL(*) 5000 UNITS/ML VIAL (FIVE THOUSAND) SUBCUT SCH (22:00)
[2019-04-16] MEDS ORDERED: Norepinephrine 16MCG/ML IVPRE* 4,000 MCG/250 ML BAG IV SCH (22:00)
[2019-04-16] MEDS ORDERED: Iodixanol* (CONTRAST) 320 MG/ML 100 ML SDV IV ONE (22:30)
[2019-04-16] MEDS: Lactated Ringers 1000 ML Bag* 1,000 ML IV SCH (23:30)
[2019-04-16] MEDS: KCL 20 MEQ/100 ML IVPREMIX* 20 MEQ/100 ML BAG IV SCH (23:45)
[2019-04-16] MEDS: Albuterol/Ipratropium NEB.SOL* Albuterol 2.5 MG/Ipratropium 0.5 MG 3 ML INH SCH (23:52)
--- NOTE | 2019-04-17 00:53 | HP ---
CC: Dr. Kristal Julien * ADMISSION HISTORY AND PHYSICAL: DATE OF ADMISSION: 04/16/19 PRIMARY CARE PROVIDER: Dr. Kristal Julien in [place]. MY ATTENDING WHILE IN THE HOSPITAL: Dr. Payal Medrano.* (DICTATED BY MARQUITA CAMEJO) CHIEF COMPLAINT: Shortness of breath x2 days. HISTORY OF PRESENT ILLNESS: Ms. Coats is 64-year-old female with past medical history significant for COPD; postsurgical hypothyroidism, hypoparathyroidism; as well as sleep apnea, not compliant with CPAP, who was feeling in his normal state of health with mild shortness of breath on exertion and chronic lower extremity edema until 2 days ago when she began to have hot and cold flashes, worsening cough. No hemoptysis. The patient also developed right-sided pleuritic chest pain which she describes as stabbing and localized right to a particular spot, not reproducible to palpation. The patient took her own temperature at home and the highest of note to be was 101. The patient felt palpitations, without having dizziness on standing, but had severe shortness of breath on exertion, not being able to get up to the bathroom having to stop several times. The patient states she gets pneumonia every year and this is similar to what she gets, but it is much more intense. The patient does not usually have chest pain. The patient denies dysuria, abdominal pain, diarrhea. The patient has not been otherwise ill. The patient has no sick contacts. The patient does not smoke. The patient quit smoking a month ago. Besides the last 2 days has not had any prolonged mobilization or car trips. In the emergency department, patient had low blood pressures with systolics in the 80s , diastolics in the 40s and several MAPs below 65, but not consecutively. Patient initially responded to fluid, her heart rate came down from one-teens to the 90s. The patient, however, was found to have white blood cell count of 20.2. A chest x-ray with multiple infiltrates and had wheezing and rhonchi on her exam. Due to concern for sepsis and pneumonia, we were asked to evaluate the patient for admission to the hospital. The patient denies dysphagia. PAST MEDICAL HISTORY: Hypothyroidism, hypoparathyroidism, COPD, sleep apnea, degenerative disc disease, GERD, history of remote alcoholism, thyroid cancer. PAST SURGICAL HISTORY: Carpal tunnel release, hysterectomy, right total knee replacement, left total hip replacement, cardiac catheterization 2009, thyroidectomy for thyroid cancer. MEDICATIONS: 1. Synthroid 117 mcg p.o. daily. 2. Sertraline 100 mg p.o. daily. 3. Potassium supplementation unknown dose. 4. Albuterol inhaler 1 puff inhalation q.4 hours as needed. 5. Albuterol nebulizer 1 nebulizer inhalation q.6 hours as needed. ALLERGIES: PENICILLIN, AMLODIPINE, HYDROCODONE. FAMILY HISTORY: Patient's mother of heart disease, "her heart exploded." The patient's father of brain cancer. Patient has 1 sister, alive and well. SOCIAL HISTORY: The patient quit 1 month ago and from that point had smoked 1 pack a day from the age of 17 till she was 63. The patient used to abuse alcohol, recent relapse, but is currently abstinent. The patient denies illicit drug use. 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 The patient is not and has 4 children. The patient declines to give a surrogate decision maker. REVIEW OF SYSTEMS: A 14-point review of systems was reviewed and is negative except as noted above in the HPI. PHYSICAL EXAMINATION GENERAL: The patient is a 64-year-old female who appears stated age and sitting in the bed with increased work of breathing. VITAL SIGNS: At the time of evaluation temperature 99.9, pulse rate 95, respiratory rate 25, oxygen saturation 96% on 4 L, blood pressure 90/46, MAP of 64. HEENT: Head: Normocephalic, atraumatic. Sclerae anicteric. No conjunctival injection. Nasal mucosa moist. Oral mucosa moist. Mucus in the posterior pharynx. NECK: Supple. Nontender. No lymphadenopathy. No carotid bruits auscultated. No JVD. RESPIRATORY: Poor air entry bilaterally. Rhonchi throughout, harsh expiratory wheezing heard in the right upper lobe, left lower lobe and anterior lobes bilaterally. Egophony positive in the right lower lobe. CARDIAC: Mildly tachycardic. No clicks, murmurs, gallops or rubs. Pulses are 2+ in the bilateral dorsalis pedis, posterior tibialis, and radial areas. 1+ bilaterally lower extremity edema. ABDOMEN: Soft, nontender, nondistended. Bowel sounds present in all 4 quadrants. No hepatosplenomegaly. No abdominal bruits auscultated. No hepatojugular reflux. GENITOURINARY: No suprapubic or CVA tenderness. SKIN: Clear, intact. No rashes. NEURO: Cranial nerves II through XII intact. No focal deficits. Alert and oriented x3. PSYCHIATRIC: Pleasant and cooperative. DIAGNOSTIC STUDIES/LAB DATA: White cell count of 28.2, hemoglobin 13.3, platelet count 276. INR 1.57. Sodium 132, potassium 3.3, chloride 102, carbon dioxide 22, anion gap 8, BUN 15, creatinine 1.18, glucose 127, lactic acid 0.3, calcium 8.3. Bilirubin 1.1, AST 16, ALT 13, alkaline phosphatase 48. Troponin I 0.01. CRP 169.56. BNP 107. Protein 7.1, albumin 3.6, globulin 3.5. Studies: Electrocardiogram shows sinus tachycardia, no ST segment elevation or depression, no inverted T waves. Poor R-wave progression across the precordium. Low amplitudes. No other hypertrophy or enlargement. No blocks. Rate 104, QTc of 490. Chest x-ray shows multiple possible infiltrates, primarily in the right lower lobe and left lingular area. ASSESSMENT/PLAN: Ms. Coats is a 64-year-old female with past medical history significant for COPD, sleep apnea, hypothyroidism who presents to the emergency department with shortness of breath, fevers, chills, and concern for pneumonia with sepsis and septic shock admitted to the ICU for close monitoring, oxygen therapy, and vasopressors if indicated. 1. Shortness of breath, acute hypoxic respiratory failure, probable pneumonia. The patient is currently needing 4 L of oxygen using nasal cannula and is saturating well in this; however, she states she is getting tired of breathing with her tachypnea and may need positive pressure oxygen therapy including Vapotherm and BiPAP to which the patient will be amenable. The patient is not interested in intubation nor chest compressions. The patient has lower extremity edema, calf tenderness and findings concerning for PE on her a chest x -ray, though these are obviously nonspecific. The patient will have the CTA of her chest to further clarify her respiratory situation. The patient received Levaquin in the emergency department. The patient will be given azithromycin and cefuroxime for community- acquired pneumonia treatment. The patient will be given steroids as well given her highly inflammatory pneumonia. 2. COPD exacerbation. The patient will have scheduled DuoNeb. The patient will have steroids and pulmonary toileting. The patient is significantly wheezing. 3. Severe septic shock. The patient had while she was in the room 2 consecutive MAPs approximately 2 minutes apart less than 64 meeting criteria for septic shock. The patient has a normal lactic acid; however, patient did receive fluids totaling a bolus of 3000 mL, which is a 30 mg/kg bolus and this failed to bring her MAP above 65. The patient will be admitted to the ICU, started on norepinephrine drip. The patient will also be treated with steroids in case there is a component of relative adrenal deficiency contributing to patient's hypotension. 4. Hypothyroidism. Continue patient's Synthroid. 5. Hypoparathyroidism. The patient's calcium is mildly low, this will be monitored closely with fluids. 6. Sleep apnea. 7. DVT prophylaxis: The patient will have heparin subcu. The patient may need full anticoagulation. 8. FEN: The patient will have a heart-healthy diet without caffeine and fluids 25 mL an hour for blood pressure support, monitor closely for fluid overload and pulmonary edema. 9. Disposition: The patient will be admitted to the ICU. The patient's clinical status is guarded. 10. Code Status: The patient would like to be DNR/DNI. The patient would like antibiotics, a trial of noninvasive positive pressure ventilation if indicated and would like a central line, again if indicated. TIME SPENT: Approximately 60 minutes was spent on the admission of this patient , 30 of which was spent [id number] with patient obtaining history and physical and discussing treatment plan. This plan was discussed with my attending, Dr. Payal Medrano, and she is in agreement. MARQUITA CAMEJO [id number]/[facility] #: [id number] CHRIS
[2019-04-17] MEDS ORDERED: cefTRIAXone(*) 1 GM in NS 0.9% 50 ML* 50 ML IVPB SCH (01:30)
[2019-04-17] MEDS: cefTRIAXone(*) 1 GM in NS 0.9% 50 ML* 50 ML IVPB SCH (01:39)
[2019-04-17] MEDS: methylPREDNISolone SOD 40 MG* 1 ML VIAL IV SCH ×3 (01:40→20:39)
[2019-04-17] MEDS: Heparin VIAL(*) 5000 UNITS/ML VIAL (FIVE THOUSAND) SUBCUT SCH ×3 (01:40→17:23)
[2019-04-17 01:48] LABS: Urine Appearance Clear; Urine Bilirubin Negative (Negative); Urine Blood Negative (Negative); Urine Color Yellow; Urine Glucose Negative (Negative); Urine Ketones Negative (Negative); Urine Nitrite Negative (Negative); Urine Protein Negative (Negative); Urine Specific Gravity 1.015 (1.010-1.030); Urine Urobilinogen Negative (Negative)
[2019-04-17] MEDS: Albuterol/Ipratropium NEB.SOL* Albuterol 2.5 MG/Ipratropium 0.5 MG 3 ML INH SCH ×2 (03:21→08:01)
[2019-04-17] MEDS: KCL 20 MEQ/100 ML IVPREMIX* 20 MEQ/100 ML BAG IV SCH ×2 (03:39→05:47)
[2019-04-17 04:16] LABS: ABS Lymphocytes 1.2 10^3/ul (1.0-4.8); ABS Monocytes 0.7 10^3/ul (0-0.8); ABS Neutrophils 13.6 10^3/ul (1.5-7.7); Eosinophil % 0.1 %; Hematocrit 35 % (35-47); Hemoglobin 11.7 g/dL (12.0-16.0); Lymphocyte % 7.6 %; Mean Corpuscular HGB Conc 34 g/dL (31-36); Mean Corpuscular Hemoglobin 29 pg (27-31); Mean Corpuscular Volume 87 fL (80-97); Mean Platelet Volume 7.7 fL (7.4-10.4); Platelet Count 216 10^3/uL (150-450); Red Cell Distribution Width 14 % (10-15); White Blood Count 15.5 10^3/uL (3.5-10.8)
[2019-04-17 04:31] LABS: BUN/Creatinine Ratio 13.7 (8-20); Blood Urea Nitrogen 14 mg/dL (6-24); CO2 Carbon Dioxide 17 mmol/L (22-32); Chloride 110 mmol/L (101-111); EGFR African American 65.8 (>60); EGFR Non-African American 54.4 (>60); Glucose 129 mg/dL (70-100); Sodium 135 mmol/L (135-145)
[2019-04-17 04:32] LABS: Anion Gap 8 mmol/L (2-11)
[2019-04-17] MEDS: Levothyroxine TAB* 175 MCG TAB PO SCH (05:46)
[2019-04-17 05:52] LABS: Magnesium 1.8 mg/dL (1.9-2.7); Potassium Redraw 3.8 mmol/L (3.5-5.0)
--- NOTE | 2019-04-17 06:55 | PN ---
Hospitalist Progress Note Date of Service: 04/17/19 Persistent hypotension overnight, was on peripheral levophed Attempted R IJ TLC though pt with tortuous vessel and could not advance the wire past 4 to 5 cm, she tolerated the attempted procedure well. We elected to hold off and see if BP recovers on its own which it did and levophed titrated off. BP best monitored with radial cuff. Excellent UOP, no e/o end organ damage
[2019-04-17] MEDS: Lactated Ringers 1000 ML Bag* 1,000 ML IV SCH ×3 (07:50→22:15)
[2019-04-17] MEDS ORDERED: Albuterol/Ipratropium NEB.SOL* Albuterol 2.5 MG/Ipratropium 0.5 MG 3 ML INH PRN (08:12)
[2019-04-17] MEDS ORDERED: Perflutren Lipid Microsphere* 3 ML VIAL ONE (08:23)
[2019-04-17] MEDS: Sertraline* 100 MG TAB PO SCH (09:05)
[2019-04-17] MEDS: guaiFENesin ER TAB 600 MG PO SCH ×2 (09:05→20:42)
--- NOTE | 2019-04-17 09:16 | ECHO ---
*[facility]* [place] [address] Fax #: [phone] Transthoracic Echocardiogram Patient: Pauly, Height: 63 in / 160 Mariana Hayward cm : 1955 Weight: 219.5 lb / Study Date: 04/17/2019 99.8 kg Age: 64 BP: 116 / 72 Gender: F BMI/BSA: 39 kg/m^2 / HR: 72 bpm 2.01 m^2 *Fence Repairman: * Tamanna Sumner [facility] *Referring Physician: * Yariel Thompson *Reading Physician: * Daljit Mcdaniel MD Indications: SOB. History: Chronic obstructive pulmonary disease. Risk factors: Obese. Thyroid cancer. Conclusions Summary: 1. Left ventricle: The cavity size is normal. Wall thickness is mildly to moderately increased. Systolic function is normal. The estimated ejection fraction is 55-60%. Wall motion is normal; there are no regional wall motion abnormalities. 2. Right ventricle: Systolic function is normal. 3. Mitral valve: There is no significant regurgitation. 4. Aortic valve: There is no evidence of stenosis. There is no significant regurgitation. 5. Tricuspid valve: There is no significant regurgitation. 6. Pericardium, extracardiac: A small pericardial effusion is identified posterior to the heart. PLAX 0.6cm (left ventricle). Features are not consistent with tamponade physiology. Study data: Transthoracic echocardiogram. Procedure: Transthoracic echocardiography was performed. Image quality was adequate. Intravenous Definity , 2 mlswas administered. Image enhancement administered by Hali Michael RN. Complete 2D, spectral Doppler, and color flow Doppler. Location: ICU Patient status: Inpatient. Patient room number: 9. Rhythm: Normal sinus rhythm. Findings Left ventricle: The cavity size is normal. Wall thickness is mildly to moderately increased. Systolic function is normal. The estimated ejection fraction is 55-60%. Wall motion is normal; there are no regional wall motion abnormalities. There is no consistent Doppler evidence of clinically significant diastolic dysfunction. Right ventricle: The cavity size is normal. Wall thickness is mildly increased. Systolic function is normal. Left atrium: The atrium is normal in size. Right atrium: Not well visualized. Mitral valve: The leaflets are normal thickness. There is no evidence of stenosis. There is no significant regurgitation. Aortic valve: The valve is trileaflet. The leaflets are normal thickness. There is no evidence of stenosis. There is no significant regurgitation. Tricuspid valve: The leaflets are normal thickness. There is no evidence of stenosis. There is no significant regurgitation. Pulmonic valve: The leaflets are normal thickness. There is no evidence of stenosis. There is no significant regurgitation. Aorta: Aortic arch: The aortic arch is appears normal. The aortic root is not dilated. Pericardium: A small pericardial effusion is identified posterior to the heart. PLAX 0.6cm (left ventricle). Doppler: Features are not consistent with tamponade physiology. Pulmonary arteries: Not well visualized. Systolic pressure can not be accurately estimated. Systemic veins: Inferior vena cava: The vessel is dilated. The respirophasic diameter changes are blunted (< 50%). Measurements Left ventricle Value Ref Mitral valve Value Ref HANNA, LAX 3.9 cm 3.8 - 5.2 Peak E 0.98 m/sec ---- ESD, LAX 2.8 cm 2.2 - 3.5 Peak A 1.22 m/sec ---- FS, LAX 29 % 27 - 45 Decel time 135 ms ---- PW, ED, LAX (H) 1.1 cm 0.6 - 0.9 PHT 103 ms ---- EF 57 % 54 - 74 Mean grad, D 3.0 mm Hg ---- E', lat yue, TDI (L) 6.5 cm/sec >=10.0 Peak grad, D 6.0 mm Hg ---- E/e', lat yue, TDI 15 --------- Peak E/A ratio 0.8 ---- MVA, PHT 2.1 cm^2 ---- LVOT Value Ref Peak nola, S 0.94 m/sec --------- Pulmonic valve Value Ref Mean grad, S 2 mm Hg --------- Peak v, S 0.65 m/sec ---- Peak grad, S 2.0 mm Hg ---- Ventricular septum Value Ref IVS, ED (H) 1.3 cm 0.6 - 0.9 Aortic root Value Ref Root diam 3.1 cm <4.1 Right ventricle Value Ref HANNA, LAX 2.5 cm --------- Ascending aorta Value Ref AAo AP diam, S 2.9 cm ---- Left atrium Value Ref ML dim, A4C 4.1 cm --------- Aortic arch Value Ref SI dim, A4C 6.0 cm --------- Arch diam 2.1 cm ---- Vol/bsa, ES, A/L 32 ml/m^2 16 - 34 Decending aorta Value Ref Right atrium Value Ref Patria peak nola 0.92 m/sec ---- Estimated RAP 3 mm Hg --------- Inferior vena cava Value Ref Aortic valve Value Ref Diam 2.4 cm ---- Yue diam, ED 2.1 cm --------- Peak v, S 1.07 m/sec --------- VTI, S 24.6 cm --------- Mean grad, S 2.0 mm Hg --------- Peak grad, S 5.0 mm Hg --------- Legend: (L) and (H) rosmery values outside specified reference range. Prepared and electronically signed by Daljit Mcdaniel MD 04/17/2019 09:15
--- NOTE | 2019-04-17 09:25 | PRO ---
PROCEDURE NOTE: DATE OF PROCEDURE: 04/16/19 PROCEDURE: Central line placement, right IJ. Aborted 12/02 to unable to advance guidewire INDICATION: For hypotension in the setting of sepsis. Consent is obtained from the patient. She is awake and alert at the time of consent. DESCRIPTION OF PROCEDURE: As follows: Area was cleaned and prepped in sterile fashion. Benefits and risks were discussed with the patient. The patient was placed flat and right neck was prepped using chlorhexidine scrub and draped in sterile fashion. Time-out was done. Under ultrasound, introducer needle was inserted into the internal jugular vein under direct ultrasound visualization. Venous blood was drawn. Guidewire was placed, but was unable to be advanced into the vessel, multiple angles were tried and ultimately procedure was aborted. Complications none. Estimated blood loss less than 5 mL. Discussion with the patient and with nursing, reattempt at internal jugular triple-lumen placement was unnecessary as blood pressure was improving after fluid bolus. Counseled the patient that we will continue to monitor if eventual triple lumen placement is needed. Summary of care at the end, right triple-lumen central line was attempted to be placed although guidewire could not be advanced through vessel and thus procedure was aborted on discussion with the patient and nursing. Retrial of triple-lumen catheter will be held off unless the patient had worsening clinical status. [id number]/[facility] #: [id number] CHRIS
[2019-04-17] MEDS: Levofloxacin 750 MG IVPREMIX(* 750 MG/150 ML BAG IVPB SCH (09:42)
--- NOTE | 2019-04-17 16:01 | PN ---
Subjective Date of Service: 04/17/19 Interval History: Patient seen in ICU this morning. She is on 3L NC saturating about 92%. Denies any chest pain. Tolerating her medications well. Off pressor and BP 112 /74. Past Medical History: Unchanged from Admission Objective Active Medications: Acetaminophen (Tylenol Tab*) 650 mg PO Q6H PRN PRN Reason: FEVER/PAIN Albuterol (Ventolin 2.5 Mg/3 Ml Neb.Roya*) 2.5 mg INH Q2H PRN PRN Reason: SOB/WHEEZING Albuterol/Ipratropium (Duoneb (Albuterol 2.5 Mg/Ipratropium 0.5 Mg)) 1 neb INH Q4H PRN PRN Reason: SOB/WHEEZING Benzonatate (Tessalon Cap*) 100 mg PO BID PRN PRN Reason: COUGH Guaifenesin (Mucinex*) 1,200 mg PO BID [facility] Last Admin: 04/17/19 09:05 Dose: 1,200 mg Heparin Sodium (Porcine) (Heparin Vial(*)) 5,000 units SUBCUT Q8H [facility] Last Admin: 04/17/19 09:08 Dose: 5,000 units Lactated Ringer's (Lactated Ringers 1000 Ml Bag*) 1,000 mls @ 100 mls/hr IV PER RATE [facility] Last Admin: 04/17/19 11:59 Dose: 100 mls/hr Levofloxacin/Dextrose (Levaquin 750 Mg Ivpremix(*)) 750 mg in 150 mls @ 100 mls /hr IVPB Q24H [facility]; Protocol Last Admin: 04/17/19 09:42 Dose: 100 mls/hr Levothyroxine Sodium (Synthroid Tab*) 175 mcg PO DAILY@0600 [facility] Last Admin: 04/17/19 05:46 Dose: 175 mcg Methylprednisolone Sodium Succinate (Solu-Medrol 40 Mg) 60 mg IV Q12HR [facility] Last Admin: 04/17/19 09:07 Dose: 60 mg Ondansetron HCl (Zofran Inj*) 4 mg IV Q6H PRN PRN Reason: NAUSEA Last Admin: 04/16/19 21:55 Dose: 4 mg Sertraline HCl (Zoloft*) 100 mg PO DAILY [facility] Last Admin: 04/17/19 09:05 Dose: 100 mg Vital Signs - 8 hr 04/17/19 04/17/19 04/17/19 08:10 11:00 11:28 Temperature 98.1 F Pulse Rate 75 86 Respiratory 20 20 20 Rate Blood Pressure 112/54 (mmHg) O2 Sat by Pulse 96 97 Oximetry Oxygen Devices in Use Now: Nasal Cannula Appearance: Awake, Alert. no distress. Nasal canula Eyes: No Scleral Icterus, - - EOMI Ears/Nose/Mouth/Throat: NL Teeth, Lips, Gums Neck: NL Appearance and Movements; NL JVP, Trachea Midline Respiratory: Symmetrical Chest Expansion and Respiratory Effort, - - diminished BS bilateral Cardiovascular: NL Sounds; No Murmurs; No JVD, No Edema Abdominal: NL Sounds; No Tenderness; No Distention Extremities: No Edema Skin: No Rash or Ulcers Neurological: Alert and Oriented x 3 Result Diagrams: 04/17/19 04:01 04/17/19 04:32 Microbiology and Other Data: Microbiology 04/17/19 01:38 Legionella Urinary Antigen - Final Urine Negative Legionella Antigen Streptococcus pneumoniae Ag Screen - Final Negative S. pneumo Antigen 04/17/19 22:56 Nasal Screen MRSA (PCR) - Final Nasal Mrsa Not Detected Assess/Plan/Problems-Billing Assessment: 64 year old female admitted for sepsis secondary to multilobar pneumonaie required pressor for BP support and high flow Oxygen treatment. - Patient Problems (1) Pneumonia Current Visit: Yes Status: Acute Code(s): J18.9 - PNEUMONIA, UNSPECIFIED ORGANISM SNOMED Code(s): 384171888 Comment: - CXR revealed Multilobar pneumonaie. - CTA chest on admission negative for PE - Given her history of COPD she is high risk for pseudomona's - I will transtion her to IV levaquin 750 mg IV daily Day #2 (2) COPD (chronic obstructive pulmonary disease) Current Visit: Yes Status: Acute Code(s): J44.9 - CHRONIC OBSTRUCTIVE PULMONARY DISEASE, UNSPECIFIED SNOMED Code(s): 05766671 Comment: - Will continue her solumedrol 60 mg IV q12. - Decrease to 40 mg IV in am - Continue neb treatment and oxygen titrate for sat 92% or better (3) Hypothyroid Current Visit: Yes Status: Acute Code(s): E03.9 - HYPOTHYROIDISM, UNSPECIFIED SNOMED Code(s): 69001996 Comment: - On levothyroxine 175 mcg daily (4) Hypoparathyroidism Current Visit: Yes Status: Acute Code(s): E20.9 - HYPOPARATHYROIDISM, UNSPECIFIED SNOMED Code(s): 79989151 Comment: - by history - Calcium down to 7 today - I will start her on calcium with vitamin D. start today 750 mg bid (5) GERD (gastroesophageal reflux disease) Current Visit: Yes Status: Acute Code(s): K21.9 - GASTRO-ESOPHAGEAL REFLUX DISEASE WITHOUT ESOPHAGITIS SNOMED Code(s): 373085445 Comment: - on no meds. - Will place famotidine while inpatient (6) Apnea, sleep Current Visit: Yes Status: Acute Code(s): G47.30 - SLEEP APNEA, UNSPECIFIED SNOMED Code(s): 74887489 (7) DVT prophylaxis Current Visit: Yes Status: Acute Code(s): Z29.9 - ENCOUNTER FOR PROPHYLACTIC MEASURES, UNSPECIFIED SNOMED Code(s): 772607262 Comment: heparin SQ
[2019-04-17] MEDS: Calcium/Vitamin D TAB 250/125* TAB PO SCH ×2 (17:23→20:42)
[2019-04-17] MEDS ORDERED: Azithromycin IV(*) 250 MG in NS 0.9% 250 ML* 250 ML IVPB SCH (22:00)
[2019-04-17] MEDS ORDERED: Al Hydrox/Mg Hydrox/Simet LIQ* 30 ML UDC PO PRN (23:29)
[2019-04-18] MEDS: Heparin VIAL(*) 5000 UNITS/ML VIAL (FIVE THOUSAND) SUBCUT SCH ×2 (01:56→08:01)
[2019-04-18 05:29] LABS: ABS Lymphocytes 1.9 10^3/ul (1.0-4.8); ABS Monocytes 0.9 10^3/ul (0-0.8); ABS Neutrophils 17.7 10^3/ul (1.5-7.7); Hematocrit 33 % (35-47); Hemoglobin 11.4 g/dL (12.0-16.0); Lymphocyte % 9.5 %; Mean Corpuscular HGB Conc 35 g/dL (31-36); Mean Corpuscular Hemoglobin 30 pg (27-31); Mean Corpuscular Volume 85 fL (80-97); Mean Platelet Volume 8.3 fL (7.4-10.4); Platelet Count 217 10^3/uL (150-450); Red Blood Count 3.87 10^6 /uL (3.70-4.87); Red Cell Distribution Width 15 % (10-15); White Blood Count 20.6 10^3/uL (3.5-10.8)
[2019-04-18 05:45] LABS: Calcium 8.2 mg/dL (8.6-10.3); EGFR African American 95.3 (>60); EGFR Non-African American 78.8 (>60); Phosphorus 2.7 mg/dL (2.5-5.0); Potassium 4.3 mmol/L (3.5-5.0)
[2019-04-18] MEDS: Levothyroxine TAB* 175 MCG TAB PO SCH (06:00)
[2019-04-18] MEDS: Calcium/Vitamin D TAB 250/125* TAB PO SCH (07:58)
[2019-04-18] MEDS: Sertraline* 100 MG TAB PO SCH (07:59)
[2019-04-18] MEDS: guaiFENesin ER TAB 600 MG PO SCH (07:59)
[2019-04-18] MEDS: methylPREDNISolone SOD 40 MG* 1 ML VIAL IV SCH (08:01)
[2019-04-18 08:45] VITALS: BP 118/55
[2019-04-18] MEDS ORDERED: Famotidine TAB* 20 MG PO SCH (09:00)
[2019-04-18] MEDS: Levofloxacin 750 MG IVPREMIX(* 750 MG/150 ML BAG IVPB SCH (10:56)
--- NOTE | 2019-04-18 19:07 | DS ---
CC: Dr. Kristal Julien * DISCHARGE SUMMARY: DATE OF ADMISSION: 04/16/19 DATE OF DISCHARGE: Discharge signed against medical advice, 04/18/19. FINAL DISCHARGE DIAGNOSES: 1. Multilobar pneumonia. 2. History of chronic obstructive pulmonary disease. 3. Hypothyroidism. 4. Hypoparathyroidism. 5. Gastroesophageal reflux disease. 6. Sleep apnea. HOSPITAL COURSE: The patient presented to [facility] on 04/16/19 for shortness of breath x2 days with underlying known history of COPD, sleep apnea noncompliant, started having some shortness of breath with exertion and lower extremity swelling 2 days prior to presentation associated with cold and hot flashes, worsening cough, and right-sided chest pain. She took her temperature, it was 101. She was found to be slightly hypotensive in the emergency room with the blood pressure 80 systolic, diastolic was in the 40s and her initial workup revealed a white cell of 28,000. Her chest x-ray revealed multilobar pneumonia and hence she was admitted to the medical service. She was placed in ICU for shortness of breath and acute hypoxic respiratory failure from her pneumonia, was placed on nasal cannula. She was started on IV Levaquin in the emergency room and given her severe dyspnea, she had a CT angiogram of the chest which did not show any acute pulmonary embolism , no aortic dissection but it did reveal multilobar pneumonia in the right middle lobe, right upper lobe. I saw the patient in initial encounter on and at that time her antibiotics were just switched to ceftriaxone and Zithromax. Given her history of COPD, she is a high risk of pseudomonas, hence her antibiotic was switched back to Levaquin and I maintained her on the IV Solu -Medrol given her underlying history of COPD. The patient was transitioned to [facility] floor on 04/17/19 with the IV Levaquin, nebulizer treatment and IV steroids. She continued to do well on the oxygen via nasal cannula with saturation 98% to 97% on 2 L and afebrile with the temperature of 98.3. She was seen earlier this morning on my evaluation during rounds. I explained that our plan is to transition to steroid taper from 60 mg q.12 to 40 mg q.12. Assess her for need for oxygen at home. She was adamant on being discharged today, very insisting. I attempted to explain to the patient giving her the intensity and the severity of her pneumonia which is more than 1 lobe and her presentation with the hypotension, I did not advise about discharging her yet as she probably required another 24 to 48 to transition from IV systemic steroids to oral prednisone and then from IV antibiotic to oral and repeated chest x-ray to ensure that there is no progression of her pneumonia. Also, I need to assess for need for home oxygen. Despite multiple efforts to advise her to stay, she insisted on leaving and declining any oxygen treatment at home. Therefore, the patient was advised that she will have to sign against medical advice which put her at risk of progression of her pneumonia, respiratory failure, and . She acknowledged it and she said that she will go to [facility] and will never seek the medical attention at this facility simply because we are not releasing her and we are making her sign against medical advice. The patient's AMA form was signed, nurse staff were notified and she signed and was released in her own custody against medical advice. She was still advised to return to the emergency room or seek immediate medical attention if she develops any acute respiratory failure. No prescription was provided. She was made fully aware and she acknowledged that she will follow up with her primary care for prescription. DISCHARGE PHYSICAL EXAM: Her physical exam prior discharge; temperature 98.3, pulse 69, respiratory rate 18, sating 98%, blood pressure 118/55. General: She is awake, alert, coherent. She is capable of making a decision. She is competent. She understood the risk of dying when signing against medical advice. Neck: Her neck is supple. She is still breathing with occasionally lip pursing and the nasal canula was in place. Lungs: She does have fine expiratory wheezing, distant breath sounds. Cardiovascular: S1, S2. No murmur appreciated. I did not appreciate any ankle edema or pedal edema. WEBMETHODS CONSULTANT: She is awake, alert, ambulatory, oriented, competent. No distress. DIAGNOSTIC STUDIES: Her calcium was up to 8.2 with the supplementation of course with vitamin D, bicarb is up to 20 from 17. Sugar 169. Her CBC is 20, 000 her white count, hemoglobin 11, hematocrit 33, platelets 217,000. DISCHARGE MEDICATIONS: She was told to resume her home medications as her preadmission: 1. Albuterol. 2. Synthroid 150. 3. Zoloft 100. 4. Mucinex b.i.d. 5. Prednisone as per home regimen. No prescriptions were provided. DISCHARGE DISPOSITION: Home. DISCHARGE CONDITION: Guarded. The patient signed against medical advice. [id number]/[facility] #: [id number] CHRIS
[2019-04-18] MEDS ORDERED: methylPREDNISolone SOD 40 MG* 1 ML VIAL IV SCH (21:00)
== END 2019-04-18 11:15 | disposition left against medical advice (07) | DRG 871 ==
LOC: ED 18:32 → ICU 21:14 → MEDTELE 04-17 09:14
PROVIDERS: ADMIT Internal Medicine; ATTEND Internal Medicine
PROC: 05HM33Z Insertion of Infusion Device into Right Internal Jugular Vein, Percutaneous Approach (ICD-10-PCS; principal; 2019-04-16)
PROC: B543ZZA Ultrasonography of Right Jugular Veins, Guidance (ICD-10-PCS; 2019-04-16)
PROC: 3E033XZ Introduction of Vasopressor into Peripheral Vein, Percutaneous Approach (ICD-10-PCS; 2019-04-16)
DX: A41.9 Sepsis, unspecified organism (principal); J18.1 Lobar pneumonia, unspecified organism; J96.01 Acute respiratory failure with hypoxia; R65.21 Severe sepsis with septic shock; J44.0 Chronic obstructive pulmonary disease with (acute) lower respiratory infection; J44.1 Chronic obstructive pulmonary disease with (acute) exacerbation; I50.9 Heart failure, unspecified; E78.00 Pure hypercholesterolemia, unspecified; G47.30 Sleep apnea, unspecified; K21.9 Gastro-esophageal reflux disease without esophagitis; E89.0 Postprocedural hypothyroidism; F17.210 Nicotine dependence, cigarettes, uncomplicated; E89.2 Postprocedural hypoparathyroidism; Z96.642 Presence of left artificial hip joint; Z96.653 Presence of artificial knee joint, bilateral; Z88.6 Allergy status to analgesic agent; Z88.0 Allergy status to penicillin; Z88.8 Allergy status to other drugs, medicaments and biological substances; Z85.850 Personal history of malignant neoplasm of thyroid; Z90.710 Acquired absence of both cervix and uterus; Z82.49 Family history of ischemic heart disease and other diseases of the circulatory system; Z82.5 Family history of asthma and other chronic lower respiratory diseases; Z91.19 Patient's noncompliance with other medical treatment and regimen; Z80.8 Family history of malignant neoplasm of other organs or systems
CPT/HCPCS: 36415; 71045; 71275; 80048; 80053; 81003; 83605; 83735; 83880; 84100; 84484; 85025; 85610; 86140; 87040; 87641; 87899; 93005; 93306; 94640; 99285; A9270-GY; C8929; J0456; J0696; J1644; J1885; J2405; J2920; J3480; Q9967

== ENCOUNTER 2019-04-20 11:34 | Emergency (ER) | payer MEDICARE, MEDICAID ==
--- NOTE | 2019-04-20 12:05 | ED ---
HPI Diabetic - HPI Summary HPI Summary: A 64 y/o female brought in by [facility] ambulance presents to [facility] with a chief complaint of a "diabetic issue" since 04/19/19. Per triage note the patient called EMS for, "chills, weakness, fatigue, lower extremity edema. Fingerstick glucose for EMS was 121". At triage the patient rated her pain as a 9/10 in severity. She denies any SOB, but reports right sided chest pain. The patient wanted to come back to the ED for evaluation after leaving the hospital AMA on . Pt was admitted to [facility] through the ED on 04/16/19 and she was diagnosed with pneumonia. She was on Levaquin initially, then ceftriaxone and azithromycin , then Levaquin again for possible pseudomonas. It was at this point that pt decided to leave AMA, she says now, "because she was scared". She came back because her PCP, Dr. Kristal Julien from [facility], suggested that she return to the ED. She is not on Lasix but c/o bilateral lower extremity edema. She describes her weakness as having low energy and not much appetite. She reports using a home nebulizer and Albuterol at home for her COPD. She claims that she has never had diabetes but was afraid she had it now. She did not want to be discharge with O2 at home because she "was stubborn". The patient takes Levothyroxine 175 micrograms once per day, Sertraline 50mg, albuterol and an AirPro inhaler as needed. The patient c/o lower extremity edema and states her temperature was 101 at home. During her last visit to the ED on 04/16/19, she was first admitted to the ICU on 04/16/19. In the ICU the patient was treated for multilobular pneumonia and acute hypoxic failure. Her CTA showed no pulmonary embolism and no aortic dissection. The pneumonia was of the right middle lobe and the right upper lobe. She was given IV Solu-medrol and antibiotics as above. She was on 2L of O2. She was adamant about being discharged because she did not want to be there, so she left [place]. She was prescribed antibiotics even though she was DC'd AMA, however she did not molded goods spot picker the RXs. PMHx of Hypothyroid, Hypoparathyroid, GERD and sleep apnea. SHx of bilateral knee replacement, hip replacement and thyroidectomy due to cancer. FHx of cancer. She lives by herself but says that she has a cousin around. Vital signs while in room: HR 70 bpm, BP 142/69, O2 sat 97% - History Of Current Complaint Chief Complaint: EDGeneral Hx Obtained From: Patient, EMS Onset/Duration: Sudden Onset, Lasting Days, Still Present Timing: Constant Severity Initially: Severe Severity Currently: Severe Character: Alert Aggravating: Nothing Alleviating: Nothing Associated Signs & Symptoms: Negative - SOB, Chills Related History: Other - does not have DM, was worried she did. Was recently on steroids in the hospital - Allergies/Home Medications Allergies/Adverse Reactions: Allergies Allergy/AdvReac Type Severity Reaction Status Date / Time amlodipine Allergy Constipatio Verified 04/16/19 18:55 n ampicillin Allergy Swelling Verified 04/16/19 18:55 hydrocodone Allergy Nausea Verified 04/16/19 18:55 Penicillins Allergy Swelling Verified 04/16/19 18:55 Home Medications: Home Medications Albuterol 2.5MG/3ML (0.083%)* [Ventolin 2.5 MG/3 ML NEB.MARIZA*] 2.5 mg INH Q6H PRN 04/20/19 [History Confirmed 04/20/19] Omeprazole (Nf) [Prilosec (NF)] 40 mg PO DAILY 04/20/19 [History Confirmed 04/20] Potassium Chlor TAB* [Potassium Chlor TAB 20 MEQ*] 20 meq PO DAILY 04/20/19 [ History Confirmed 04/20/19] guaiFENesin ER TAB [Mucinex*] 600 mg PO BID PRN 04/20/19 [History Confirmed ] PMH/Surg Hx/FS Hx/Imm Hx Previously Healthy: No Endocrine/Hematology History: Reports: Hx Thyroid Disease - thyroidectomy d/t cancer, hypothyroid, hypoparathyroid Denies: Hx Diabetes Cardiovascular History: Reports: Hx Congestive Heart Failure, Hx Hypercholesterolemia, Other Cardiovascular Problems/Disorders - cardiac cath 2009 benign Denies: Hx Hypertension, Hx Pacemaker/ICD Respiratory History: Reports: Hx Asthma, Hx Chronic Obstructive Pulmonary Disease (COPD), Hx Sleep Apnea GI History: Reports: Hx Gastroesophageal Reflux Disease - CONTROL WITH MEDS History: Denies: Hx Renal Disease Musculoskeletal History: Reports: Hx Arthritis - KNEES, NECK Sensory History: Reports: Hx Contacts or Glasses Denies: Hx Hearing Aid Opthamlomology History: Reports: Hx Contacts or Glasses Psychiatric History: Denies: Hx Panic Disorder - Cancer History Cancer Type, Location and Year: thyroid Hx Chemotherapy: No Hx Radiation Therapy: No - Surgical History Surgery Procedure, Year, and Place: hysterectomy 1979- 09/21/15- 12/22/15 BILATERAL KNEE REPLACEMENTS. bilateral carpal tunnel. lt knee surgery. cosmetic ear surgery but did not work per pt. thyroid removal due to ca. hip replacement Hx Anesthesia Reactions: No Infectious Disease History: No Infectious Disease History: Denies: Traveled Outside the [place] in Last 30 Days - Family History Known Family History: Positive: Cardiac Disease, Respiratory Disease - Social History Lives: Alone Alcohol Use: None Hx Substance Use: No Substance Use Type: Reports: None Hx Tobacco Use: Yes Smoking Status (MU): Light Every Day Tobacco Smoker Type: Cigarettes Amount Used/How Often: 1/2 ppd Length of Time of Smoking/Using Tobacco: > 40 years Have You Smoked in the Last Year: No Review of Systems Positive: Chills, Fatigue Positive: Chest Pain - right sided Positive: Cough. Negative: Shortness Of Breath Gastrointestinal: Negative Positive: no symptoms reported Positive: Edema Skin: Negative Positive: Weakness - she describes her weakness as having low energy, and not much of an appetite Psychological: Normal All Other Systems Reviewed And Are Negative: Yes Physical Exam - Summary Physical Exam Summary: Appearance: Ill-appearing, moderate pain distress, well-nourished Skin: Warm, color reflects adequate perfusion, dry, scars from bilateral knee replacement, "cold sore" on her right lower lip Head: Normal Head/Face inspection, atraumatic, Eyes: Conjunctiva clear ENT: Normal inspection, cold sore on right lateral lower lip Neck: Supple, no nodes, no JVD Respiratory: Lungs clear, normal breath sounds, no respiratory distress Cardio: RRR, No murmur, pulses normal, brisk capillary refill Abdomen: Soft, nontender Bowel sounds: Present Musculoskeletal: Strength Intact/ROM intact, no calf tenderness, 2+ pitting edema of bilateral LE. Psychological: Normal Neuro: Alert, muscle tone normal, no focal deficit Triage Information Reviewed: Yes Vital Signs On Initial Exam: Initial Vitals Pulse Resp BP Pulse Ox 59 23 142/69 98 04/20/19 11:36 04/20/19 11:36 04/20/19 11:36 04/20/19 11:36 Vital Signs Reviewed: Yes Diagnostics - Vital Signs Vital Signs Temp Pulse Resp BP Pulse Ox 04/20/19 11:40 57 21 97 04/20/19 11:37 98.2 F 60 18 142/69 98 04/20/19 11:36 59 23 142/69 98 - Laboratory Result Diagrams: 04/20/19 12:35 04/20/19 12:35 Lab Statement: Any lab studies that have been ordered have been reviewed, and results considered in the medical decision making process. - Radiology CXR Radiology Interpretation Completed By: Radiologist Summary of Radiographic Findings: SMALL RIGHT PLEURAL EFFUSION. ED physician has reviewed this imaging report. - EKG 12:15 Cardiac Rate: Bradycardia - 56 bpm EKG Rhythm: Sinus Bradycardia Summary of EKG Findings: An EKG at 12:15 reveals sinus bradycardia at 56 bpm, nml interval. LAD -38, Low voltage, compared with last EKG on 04/16/19 T-wave is now inverted in V1. ED MD has reviewed and interpreted this EKG. Re-Evaluation - Re-Evaluation First Eval Re-Evaluation Time: 14:09 Change: Improved Comment: HR 67 bpm, O2 sat 96%, BP 134/70. Pt is feeling better Second Eval Re-Evaluation Time: 14:40 Change: Improved Comment: HR 65 bpm, O2 Sat 97%, BP 134/70. Pt asked about getting a fluid pill. Pt advised that she does not have CHF so it will not help her edema. Diabetic Course/Dx - Course Course Of Treatment: A 64 y/o female presents to [facility] with complaints of chills , weakness, fatigue, lower extremity edema, and right sided chest pain. The patient denies any SOB. The patient was recently admitted to the ICU on for multilobular pneumonia and acute hypoxic failure, but left AMA on . She has not been on antibiotics for 2 days because she did not pick them up. Pt medications reviewed this visit. Nurses notes reviewed. Allergies noted. The physical exam revealed that she has a cold sore on her right lateral lower lip, 2+ pitting edema of her Bilateral LE, and scars from bilateral knee replacement. In the ED course the patient was given 2.5 mg Albuterol INH at 12: 24, 125mg Solu-Medrol IV at 12:23, and 2,990 mls at 2,990mls/hr Sodium chloride at 12:30 in case pt became septic. Bloodwork, chemistries and urines obtained. WBC of 11.3, C-Reactive Protein 27.77, B-Natriuretic Peptide 235, Calcium 7.6 ( hx hypoparathyroidism) at 12:35 and Ur Specific [place] 1.004 at 12:29. An EKG at 12:15 reveals SR, LAD -38, Low voltage, and compared with last EKG on T-wave is now inverted in V1. ED MD has reviewed and interpreted this EKG. CXR impression: SMALL RIGHT PLEURAL EFFUSION. Discussed case with Dr. Bella, hospitalist, who recommends Z-satya and Cefdinir 300mg BID and follow up with her PCP, Dr. Julien as pt is no longer acutely ill and does not meet criteria for hospitalization for pneumonia. She may complete her RX as an outpatient on oral antibiotics. She recommends no steroids. The patient will be discharged home and follow up with her PCP Dr. Kristal Julien in 2-3 days with prescriptions for Ventolin, Cefdinir and Z-Satya. Return precautions were given. The patient is agreeable with this plan. - Diagnoses Differential Dx: Hyperglycemia, Pneumonia, Sepsis Provider Diagnoses: Right upper lobe pneumonia, Right lower lobe pneumonia, Pleural effusion, right , COPD (chronic obstructive pulmonary disease), Sleep apnea, Right-sided chest pain - Physician Notifications Discussed Care Of Patient With: Maggi Bella Time Discussed With Above Provider: 13:46 Instructed by Provider To: Other - Recommends Z-satya and Cefdinir 300mg BID and follow up with her PCP, Dr. Julien. She recommends no steroids. Discharge - Sign-Out/Discharge Documenting (check all that apply): Patient Departure - DC Patient Received Moderate/Deep Sedation with Procedure: No - Discharge Plan Condition: Stable Disposition: HOME Prescriptions: Albuterol HFA INHALER* [Ventolin HFA Inhaler*] 2 puff INH Q4H PRN #1 mdi PRN Reason: Sob/Wheezing Azithromycin TAB* [Zithromax TAB (Z-SATYA) 250 mg #6 tabs] 2 tab PO .TODAY, THEN 1 DAILY #1 satya Cefdinir cap* [Cefdinir 300 MG cap (NF)] 300 mg PO BID #20 cap Patient Education Materials: How to Stop Smoking (ED), COPD (Chronic Obstructive Pulmonary Disease) (ED), Pleural Effusion (ED), Pneumonia (ED) Referrals: [facility] [Outside] - 2 Days Additional Instructions: Have definite follow up with Kristal Julien, your PCP, in [place] within 2-3 days. We discussed your care with our hospitalist on duty. Your labs are improved enough that she feels you can be discharged. Also your oxygen level is not low. Since you are not wheezing, she does not feel you need to continue the steroids. But you were given SoluMedrol 125mg IV while you were in the ER. The hospitalist recommends that you should be on a Z-Satya, and Cefdinir 300 mg twice a day for 10 days. You will need to finish the entire prescription. You will also need to start those prescriptions today. We have given you a copy of your chest x-ray. Your labs will also print out with these discharge instructions. You need to bring these discharge instructions and copy of the chest x-ray to your doctor when you are seen in 2- 3 days. The right pleural effusion is new. This definitely needs follow-up until it is gone. If you are unable to see Kristal Julien in 2-3 days, you need to go to our [facility] at [facility]. The phone number for that clinic will be on these discharge instructions. You need to stop smoking. Return to the emergency department if you have any new or worsening symptoms. - Billing Disposition and Condition Condition: STABLE Disposition: Home - Attestation Statements Document Initiated by Katie: Yes Documenting Scribe: Blair Anguiano Provider For Whom Katie is Documenting (Include Credential): Dr. Tracy Bolton MD Scribe Attestation: I, chelsea Duarteed for Dr. Tracy Bolton MD on 04/21/19 at 0821. Scribe Documentation Reviewed: Yes Provider Attestation: The documentation as recorded by the Blair amanda accurately reflects the service I personally performed and the decisions made by me, Dr. Tracy Bolton MD Status of Scribe Document: Viewed
[2019-04-20] MEDS ORDERED: methylPREDNISolone 125 MG* 2 ML VIAL IV ONE (12:23)
[2019-04-20] MEDS ORDERED: Albuterol 2.5 MG/3 ML NEB.SOL* (0.083%) INH ONE (12:24)
[2019-04-20] MEDS ORDERED: NS 0.9% IV ONE (12:30)
[2019-04-20 12:49] LABS: ABS Eosinophils 0.2 10^3/ul (0-0.6); ABS Monocytes 1.3 10^3/ul (0-0.8); ABS Neutrophils 6.8 10^3/ul (1.5-7.7); Eosinophil % 1.6 %; Hematocrit 38 % (35-47); Hemoglobin 12.8 g/dL (12.0-16.0); Lymphocyte % 26.4 %; Mean Corpuscular HGB Conc 34 g/dL (31-36); Mean Corpuscular Hemoglobin 29 pg (27-31); Mean Corpuscular Volume 85 fL (80-97); Mean Platelet Volume 8.1 fL (7.4-10.4); Nucleated Red Blood Cells % 0.1; Platelet Count 280 10^3/uL (150-450); Red Cell Distribution Width 15 % (10-15); White Blood Count 11.3 10^3/uL (3.5-10.8)
[2019-04-20 13:10] LABS: Activated Partial Thrombo Time 31.6 seconds (26.0-38.0); INR 1.03 (0.82-1.09)
[2019-04-20 13:21] LABS: Urine Appearance Clear; Urine Bilirubin Negative (Negative); Urine Blood Negative (Negative); Urine Color Straw; Urine Glucose Negative (Negative); Urine Ketones Negative (Negative); Urine Nitrite Negative (Negative); Urine Protein Negative (Negative); Urine Specific Gravity 1.004 (1.010-1.030); Urine Urobilinogen Negative (Negative)
[2019-04-20 13:26] LABS: Albumin 3.3 g/dL (3.2-5.2); BUN/Creatinine Ratio 17.6 (8-20); C Reactive Protein 27.77 mg/L (<8.01); Calcium 7.6 mg/dL (8.6-10.3); EGFR African American 75.1 (>60); Globulin 3.2 g/dL (2-4); Potassium 3.5 mmol/L (3.5-5.0); Total Bilirubin 0.4 mg/dL (0.2-1.0); Total Protein 6.5 g/dL (6.4-8.9)
[2019-04-20 13:30] LABS: Troponin I 0.01 ng/mL (<0.04)
[2019-04-20 14:47] LABS: Erythrocyte Sed Rate 57 mm/Hr (0-29)
[2019-04-20 15:19] VITALS: BP 134/70
== END 2019-04-20 15:25 | disposition home or self-care (01) ==
LOC: ED 11:34
DX: J18.1 Lobar pneumonia, unspecified organism (principal); J90 Pleural effusion, not elsewhere classified; J44.9 Chronic obstructive pulmonary disease, unspecified; G47.30 Sleep apnea, unspecified; I50.9 Heart failure, unspecified; K21.9 Gastro-esophageal reflux disease without esophagitis; F17.210 Nicotine dependence, cigarettes, uncomplicated; Z79.899 Other long term (current) drug therapy
CPT/HCPCS: 36415; 71045; 80053; 81003; 82550; 83605; 83880; 84484; 85025; 85610; 85652; 85730; 86140; 87040; 93005; 96361; 96374; 99283; J2930

== ENCOUNTER 2019-06-26 07:51 | Day surgery (SDC) | payer MEDICARE, MEDICAID ==
[~2019-06-26 07:51] MED LIST: Buffered Lidocaine 1% SYRIN* 1 ML/SYRINGE INTRADERM ONE
[2019-06-26] MEDS ORDERED: fentaNYL* 50 MCG/ML 2 ML VIAL (100 MCG VIAL) ONE (08:54)
[2019-06-26] MEDS ORDERED: Midazolam* 1 MG/ML 2 ML VIAL (2 MG) ONE (08:55)
[2019-06-26 09:53] VITALS: BP 144/79
--- NOTE | 2019-06-26 10:04 | OP ---
DATE OF OPERATION: 06/26/[address] [facility] DATE OF : 53 SURGEON: Dr. Jose Tobias. AUDIO VISUAL DIRECTOR: None. ANESTHESIA: Topical with intravenous sedation. PRE-OP DIAGNOSIS: Cataract, left eye. POST-OP DIAGNOSIS: Cataract, left eye. OPERATIVE PROCEDURE: Phacoemulsification and cataract extraction with posterior chamber intraocular lens implant, left eye. COMPLICATIONS: None. BLOOD LOSS: None. DESCRIPTION OF PROCEDURE: The patient was brought to the operating room and received a small amount of intravenous sedation. A drop of Tetracaine was placed in her left eye. She was prepped and draped in the usual sterile fashion for ophthalmic surgery and attention was directed to the left eye where a speculum was placed. A paracentesis was created at the 5 o'clock position and 0.1 cc of 1 percent preservative-free Lidocaine was injected into the anterior chamber followed by DisCoVisc. The eye was digitally stabilized while a 2.75 mm keratome was used to create a triplanar clear corneal incision at the 3 o'clock position. A continuous curvilinear capsulorrhexis was created with a cystotome and Utrata forceps. BSS on a cannula was used to hydrodissect the lens from the capsule. Phacoemulsification was performed in a divide-and- conquer technique to create four fragments which were removed. Residual cortical material was removed with irrigation and aspiration. DisCoVisc was used to inflate the capsular bag and an AUOOTO 23.0 diopter lens was folded and inserted into the capsular bag. DisCoVisc was removed using irrigation and aspiration. BSS on a cannula was used to hydrate the corneal stroma and seal the wound. At the end of the case the pupil was round and the lens was centered. The eye was of normal pressure and the wound was water tight. The speculum was removed and topical Maxitrol ointment was placed on the surface of the eye. The eye was closed, patched and shielded and the patient was sent to the recovery room in stable condition with post operative instructions and follow-up appointment given. [id number]/[facility] #: [id number] CHRIS
[2019-06-26] MEDS ORDERED: Neomycin/Polymy/Dex OPHTH.OIN* 3.5 GM ONE (10:58)
[2019-06-26] MEDS ORDERED: Cyclopentolate 1% OPTH.SOL* 2 ML BTL ONE (10:58)
[2019-06-26] MEDS ORDERED: Tropicamide 1% OPTH.SOL* BTL ONE (10:58)
[2019-06-26] MEDS ORDERED: Ketorolac 0.5% OPHTH (NF) 0.5 % 5 ML BTL ONE (10:58)
[2019-06-26] MEDS ORDERED: Tetracaine 0.5% OPTH.SOL 4 ML* 1 DROP BTL ONE (10:58)
[2019-06-26] MEDS ORDERED: Lidocaine 1% MPF ** 5 ML VIAL ONE (10:58)
[2019-06-26] MEDS ORDERED: Phenylephrine OPHTH SOL 2.5%* 2 ML ONE (10:58)
[2019-06-26] MEDS ORDERED: Phenylephr/Ketorolac 1%/0.3% OPH DROP BTL ONE (10:59)
== END 2019-06-26 10:04 | disposition home or self-care (01) ==
LOC: OREAST 07:51
PROVIDERS: ATTEND Ophthalmology
DX: H25.12 Age-related nuclear cataract, left eye (principal); F41.8 Other specified anxiety disorders; J44.9 Chronic obstructive pulmonary disease, unspecified; G47.33 Obstructive sleep apnea (adult) (pediatric); K21.9 Gastro-esophageal reflux disease without esophagitis; Z68.41 Body mass index [BMI] 40.0-44.9, adult
CPT/HCPCS: A9270-GY; C9447; J2250; J3010; V2632

== ENCOUNTER 2019-10-11 19:59 | Emergency (ER) | payer MEDICARE, MEDICAID ==
--- NOTE | 2019-10-11 20:10 | ED ---
Shortness of Breath - HPI Summary HPI Summary: This pt is a 64 y/o female, with hx of COPD, presenting to [facility] via EMS fro increased SOB for the past 3 days. EMS reports pt has also had a cough for the past 3 days. Pt describes a nonproductive cough. She states she has chest pain only with coughing. Denies fever or swelling in lower extremities. Per triage note "pt reports running out of her inhalers 2 days ago with inability to see PCP until 11/12/19." Pt is a smoker and has not had a cigarette since 0900 today. PMHx includes CHF, hypercholesterolemia, asthma, sleep apnea, GERD, s/p thyroidectomy. - History of Current Complaint Time Seen by Provider: 10/11/19 20:01 Hx Obtained From: Patient, EMS Onset/Duration: Lasting Days - 3, Still Present Timing: Constant Current Severity: Moderate Dyspnea At: Rest Aggravating Factors: Nothing Alleviating Factors: Nothing Associated Signs & Symptoms: Cough (Nonproductive), Chest Pain w/Cough - Allergy/Home Medications Allergies/Adverse Reactions: Allergies Allergy/AdvReac Type Severity Reaction Status Date / Time amlodipine Allergy Constipatio Verified 10/11/19 20:11 n ampicillin Allergy Swelling Verified 10/11/19 20:11 aspirin Allergy CONSTIPATED, Verified 10/11/19 20:11 GI UPSET hydrocodone Allergy Nausea Verified 10/11/19 20:11 ibuprofen Allergy CONSTIPATED Verified 10/11/19 20:11 Penicillins Allergy Swelling Verified 10/11/19 20:11 Home Medications: Home Medications Sertraline* [Zoloft*] 50 mg PO DAILY 10/11/19 [History Confirmed 10/11/19] celeCOXIB CAP* [CeleBREX CAP*] 200 mg PO DAILY WITH MEAL 10/11/19 [History Confirmed 10/11/19] PMH/Surg Hx/FS Hx/Imm Hx Endocrine/Hematology History: Reports: Hx Thyroid Disease - thyroidectomy d/t cancer, hypothyroid, hypoparathyroid Denies: Hx Diabetes Cardiovascular History: Reports: Hx Congestive Heart Failure, Hx Hypercholesterolemia, Other Cardiovascular Problems/Disorders - cardiac cath 2009 benign Denies: Hx Hypertension, Hx Pacemaker/ICD Respiratory History: Reports: Hx Asthma, Hx Chronic Obstructive Pulmonary Disease (COPD), Hx Sleep Apnea Denies: Other Respiratory Problems/Disorders GI History: Reports: Hx Gastroesophageal Reflux Disease - ON MEDICATION FOR, Hx Hiatal Hernia Denies: Other GI Disorders History: Denies: Hx Renal Disease, Other Problems/Disorders Musculoskeletal History: Reports: Hx Arthritis - KNEES, NECK, BACK, Other Musculoskeletal History - 3 CRACKED VERTABRAES MID BACK SINCE 1979 PER PATIENT Sensory History: Reports: Hx Cataracts - BILATERAL, Hx Contacts or Glasses - GLASSES Denies: Hx Hearing Aid Opthamlomology History: Reports: Hx Cataracts - BILATERAL, Hx Contacts or Glasses - GLASSES Neurological History: Denies: Other Neuro Impairments/Disorders Psychiatric History: Denies: Hx Panic Disorder - Cancer History Cancer Type, Location and Year: thyroid Hx Chemotherapy: No Hx Radiation Therapy: No - Surgical History Surgical History: Yes Surgery Procedure, Year, and Place: hysterectomy 1979-. 09/21/15-12/22/15 BILATERAL KNEE REPLACEMENTS. bilateral carpal tunnel. lt knee surgery. cosmetic ear surgery but did not work per pt. thyroid removal due to ca. LEFT hip replacement Hx Anesthesia Reactions: No - Family History Known Family History: Positive: Cardiac Disease, Respiratory Disease - Social History Alcohol Use: None Hx Substance Use: No Substance Use Type: Reports: None Hx Tobacco Use: Yes Smoking Status (MU): Light Every Day Tobacco Smoker Type: Cigarettes Amount Used/How Often: 1 PACK EVERY 3-4 DAYS X 48 YEARS Length of Time of Smoking/Using Tobacco: > 40 years Have You Smoked in the Last Year: Yes Review of Systems Negative: Fever, Chills Positive: Chest Pain Positive: Shortness Of Breath, Cough Negative: Edema All Other Systems Reviewed And Are Negative: Yes Physical Exam - Summary Physical Exam Summary: VITAL SIGNS: Reviewed. GENERAL: Patient is a well-developed and nourished female who is lying comfortable in the stretcher. HEAD AND FACE: No signs of trauma. No ecchymosis, hematomas or skull depressions. No sinus tenderness. EYES: PERRLA, EOMI x 2, No injected conjunctiva, no nystagmus. EARS: Hearing grossly intact. Ear canals and tympanic membranes are within normal limits. MOUTH: Oropharynx within normal limits. NECK: Supple, trachea is midline, no adenopathy, no JVD, no carotid bruit, no c- spine tenderness, neck with full ROM. CHEST: Symmetric, no tenderness at palpation. LUNGS: Decreased breath sounds. Diffuse crackles and wheezing. CVS: Regular rate and rhythm, S1 and S2 present, no murmurs or gallops appreciated. ABDOMEN: Soft, non-tender. No signs of distention. No rebound, no guarding, and no masses palpated. Bowel sounds are normal. EXTREMITIES: FROM in all major joints, no edema, no cyanosis or clubbing. NEURO: Alert and oriented x 3. No acute neurological deficits. Speech is normal and follows commands. SKIN: Dry and warm. Triage Information Reviewed: Yes Vital Signs On Initial Exam: Initial Vitals Temp Pulse Resp BP Pulse Ox 97.6 F 71 20 141/82 100 10/11/19 20:01 10/11/19 20:01 10/11/19 20:01 10/11/19 20:01 10/11/19 20:01 Vital Signs Reviewed: Yes Procedures - Sedation Patient Received Moderate/Deep Sedation with Procedure: No Diagnostics - Laboratory Result Diagrams: 10/11/19 21:14 10/11/19 21:14 Lab Statement: Any lab studies that have been ordered have been reviewed, and results considered in the medical decision making process. - Radiology Chest XR Radiology Interpretation Completed By: ED Physician Summary of Radiographic Findings: Interstitial congestion otherwise no acute process. - EKG 20:53 Cardiac Rate: NL - at 74 bpm EKG Rhythm: Sinus Rhythm Summary of EKG Findings: EKG at 2052 shows normal sinus rhythm at a rate of [address] elevations. Re-Evaluation - Re-Evaluation First Eval Re-Evaluation Time: 21:45 Change: Improved Comment: Pt feels better and she is saturating at 96% on room air. Course/Dx - Course Assessment/Plan: This pt is a 64 y/o female, with hx of COPD, presenting to [facility] via EMS from increased SOB for the past 3 days. EMS reports pt has also had a cough for the past 3 days. Pt describes a nonproductive cough. She states she has chest pain with coughing. Denies fever or swelling in lower extremities. Per triage note "pt reports running out of her inhalers 2 days ago with inability to see PCP until 11/12/19.". Pt is a smoker and has not had a cigarette since 0900 today. PMHx includes CHF, hypercholesterolemia, asthma, sleep apnea, GERD, s/p thyroidectomy. In the ED course the patient was placed in a bus driver/monitor, IV access was obtained, IV fluids started. Solu-Medrol and DuoNebs were given the ED. Blood test results without any significant abnormality except for glucose of 115, lactic acid is 2.2, calcium 7.9, CRP 12.26. ABG shows a pH of 7.48, PCO2 34, PO2 76 and O2 sat 99. After medications the patients symptoms have significantly improved. Chest x-ray shows no pneumonia. Patient is hemodynamically stable. Patient feels safe going home. Patient will follow with her primary care physician in the next 2- 3 days. I discussed all the findings and test results with the patient. Patient was instructed to return to the emergency room immediately if any of the symptoms return or worsen. Plan of care was discussed with the patient and understands and agrees. All questions were answered at patient satisfaction. There were no further complaints or concerns. Lung exam before discharge: CTA B /L. Good air exchange. No wheezing or crackles heard. CVS: S1 and S2 present. No murmurs appreciated. Patient is alert and oriented x 3. Patient is hemodynamically stable. Patient will be discharged home with follow up from her PCP in the next 2-3 days. - Diagnoses Differential Diagnosis/HQI/PQRI: Positive: Asthma, Bronchitis, CHF, COPD Exacerbation, Pneumonia, Pulmonary Edema Provider Diagnoses: COPD exacerbation Discharge ED - Sign-Out/Discharge Documenting (check all that apply): Patient Departure - Discharge home - Discharge Plan Condition: Stable Disposition: HOME Prescriptions: Albuterol 2.5MG/3ML (0.083%)* [Ventolin 2.5 MG/3 ML NEB.MARIZA*] 2.5 mg INH Q6H PRN #1 packet PRN Reason: Shortness Of Breath guaiFENesin ER TAB [Mucinex*] 600 mg PO BID PRN #12 tab.er PRN Reason: Congestion predniSONE TAB* [Deltasone 20 MG TAB*] 40 mg PO DAILY #8 tab Patient Education Materials: COPD (Chronic Obstructive Pulmonary Disease) (ED) Referrals: [facility] [Outside] Additional Instructions: Follow up with your primary care provider in 2-3 days. If you don't have one follow up with [facility]. RETURN TO THE ED FOR ANY WORSENING OR NEW SYMPTOMS. - Attestation Statements Document Initiated by Scribe: Yes Documenting Scribe: Lori Alvarez Provider For Whom Jose Guadalupee is Documenting (Include Credential): Willis Hardin MD Scribe Attestation: Lori Randolph, scribed for Willis Hardin MD on 10/11/19 at 2151. Status of Scribe Document: Ready
[2019-10-11] MEDS ORDERED: methylPREDNISolone 125 MG* 2 ML VIAL IV ONE (20:21)
[2019-10-11] MEDS ORDERED: Albuterol/Ipratropium NEB.SOL* Albuterol 2.5 MG/Ipratropium 0.5 MG 3 ML INH ONE (20:21)
[2019-10-11 21:21] LABS: ABS Basophils 0.1 10^3/ul (0-0.2); ABS Eosinophils 0.6 10^3/ul (0-0.6); ABS Lymphocytes 3.8 10^3/ul (1.0-4.8); ABS Monocytes 1.1 10^3/ul (0-0.8); ABS Neutrophils 3.5 10^3/ul (1.5-7.7); Eosinophil % 6.7 %; Hematocrit 39 % (35-47); Hemoglobin 13.5 g/dL (12.0-16.0); Lymphocyte % 41.7 %; Mean Corpuscular HGB Conc 35 g/dL (31-36); Mean Corpuscular Hemoglobin 30 pg (27-31); Mean Corpuscular Volume 87 fL (80-97); Mean Platelet Volume 7.6 fL (7.4-10.4); Nucleated Red Blood Cells % 0.1; Platelet Count 282 10^3/uL (150-450); Red Blood Count 4.45 10^6 /uL (3.70-4.87); Red Cell Distribution Width 14 % (10-15); White Blood Count 9.2 10^3/uL (3.5-10.8)
[2019-10-11 21:41] LABS: Albumin 3.9 g/dL (3.2-5.2); Albumin/Globulin Ratio 1.2 (1-3); BUN/Creatinine Ratio 13.3 (8-20); C Reactive Protein 12.26 mg/L (<8.01); Calcium 7.9 mg/dL (8.6-10.3); EGFR Non-African American 62.8 (>60); Globulin 3.2 g/dL (2-4); Potassium 3.7 mmol/L (3.5-5.0); Total Bilirubin 0.3 mg/dL (0.2-1.0); Total Protein 7.1 g/dL (6.4-8.9)
[2019-10-11 21:42] LABS: CKMB ng/mL 1.8 ng/mL (0.6-6.3)
[2019-10-11] MEDS ORDERED: Albuterol HFA INHALER* 8 gm MDI INH ONE (21:45)
[2019-10-11] MEDS ORDERED: guaiFENesin ER TAB 600 MG PO ONE (21:45)
[2019-10-11 22:09] VITALS: BP 146/83
--- NOTE | 2019-10-12 17:04 | ED ---
Imaging and Labs Follow Up Follow Up Type: Imaging Imaging Result: IMPRESSION: Bibasilar airspace opacification in the setting of poor inspiration. This could be chemical sales representative of atelectasis or infiltrate. R1F. Preliminary Imaging Read R1F Patient Communication/Plan: Pt. seen and treated for COPD exacerbation. No fever or WBC elevation. Discussed with Dr. Hardin who saw pt. and he does not feel antibiotics are indicated at this time. Provider Diagnoses: COPD exacerbation
--- NOTE | 2019-10-14 05:43 | ED ---
Imaging and Labs Follow Up Follow Up Type: Labs/Cultures Labs/Culture Result: blood culture prelim grew gram positive cocci: mrsa negative s aureus negative Patient Communication/Plan: pt not placed on abx prior to DC no fever Patient Communication/Plan: likely contaminant Provider Diagnoses: COPD exacerbation
== END 2019-10-11 22:07 | disposition home or self-care (01) ==
LOC: ED 19:59
DX: J44.1 Chronic obstructive pulmonary disease with (acute) exacerbation (principal); F17.210 Nicotine dependence, cigarettes, uncomplicated; E03.9 Hypothyroidism, unspecified; I50.9 Heart failure, unspecified; E78.00 Pure hypercholesterolemia, unspecified; K21.9 Gastro-esophageal reflux disease without esophagitis; Z90.710 Acquired absence of both cervix and uterus; Z96.653 Presence of artificial knee joint, bilateral; Z96.642 Presence of left artificial hip joint; Z79.899 Other long term (current) drug therapy; Z88.6 Allergy status to analgesic agent; Z88.5 Allergy status to narcotic agent; Z88.0 Allergy status to penicillin; Z88.8 Allergy status to other drugs, medicaments and biological substances
CPT/HCPCS: 36415; 71046; 80053; 82550; 82553; 82803; 83605; 83880; 84484; 85025; 85730; 86140; 87040; 87077; 87150; 87205; 93005; 96374; 99283; A9270-GY; J2930

== ENCOUNTER 2019-10-23 22:08 | Emergency (ER) | payer MEDICARE, MEDICAID ==
--- NOTE | 2019-10-23 22:28 | ED ---
Shortness of Breath - HPI Summary HPI Summary: 64 year old F arriving via ambulance complains of worsening shortness of breath and nonproductive cough x4 days. Patient reports that she is not sleeping well since supine position aggravates her symptoms. No fever or chest pain currently. Notes that she intermittently has chest pain when she coughs. Has been taking acetaminophen as needed. Allergic to ibuprofen. Has been doing nebulizer treatments. Had nebulizer treatments x6 today with no relief. Received nebulizer treatments x2 by EMS. Not usually on nasal cannula oxygen but she states it alleviates her symptoms. Has been eating chicken noodle soup, and drinking water and geni yazmin. Symptoms rated 10/10 in severity. Symptoms aggravated by supine position. Symptoms alleviated by nasal cannula oxygen, acetaminophen, and nebulizer treatments. Medications reviewed. Allergies reviewed. PMHx reviewed. Positive cardiac hx. Positive respiratory hx. Hx of COPD. Hx bronchitis. Hx pneumonia. Was seen in the ED 10/11 for similar sx, was discharged home with steroids which she has been taking with no relief. - History of Current Complaint Chief Complaint: EDShortnessOfBreath Time Seen by Provider: 10/23/19 22:17 Hx Obtained From: Patient Onset/Duration: Lasting Days - 4, Still Present Timing: Constant Current Severity: Severe - 10/10 Aggravating Factors: Other - supine position Alleviating Factors: Other - nasal cannula oxygen, acetaminophen, and nebulizer treatments Associated Signs & Symptoms: Negative - fever, chest pain - Allergy/Home Medications Allergies/Adverse Reactions: Allergies Allergy/AdvReac Type Severity Reaction Status Date / Time amlodipine Allergy Constipatio Verified 10/23/19 22:16 n ampicillin Allergy Swelling Verified 10/23/19 22:16 aspirin Allergy CONSTIPATED, Verified 10/23/19 22:16 GI UPSET hydrocodone Allergy Nausea Verified 10/23/19 22:16 ibuprofen Allergy CONSTIPATED Verified 10/23/19 22:16 Penicillins Allergy Swelling Verified 10/23/19 22:16 PMH/Surg Hx/FS Hx/Imm Hx Endocrine/Hematology History: Reports: Hx Thyroid Disease - thyroidectomy d/t cancer, hypothyroid, hypoparathyroid Denies: Hx Diabetes Cardiovascular History: Reports: Hx Congestive Heart Failure, Hx Hypercholesterolemia, Other Cardiovascular Problems/Disorders - cardiac cath 2009 benign Denies: Hx Hypertension, Hx Pacemaker/ICD Respiratory History: Reports: Hx Asthma, Hx Chronic Obstructive Pulmonary Disease (COPD), Hx Sleep Apnea Denies: Other Respiratory Problems/Disorders GI History: Reports: Hx Gastroesophageal Reflux Disease - ON MEDICATION FOR, Hx Hiatal Hernia Denies: Other GI Disorders History: Denies: Hx Renal Disease, Other Problems/Disorders Musculoskeletal History: Reports: Hx Arthritis - KNEES, NECK, BACK, Other Musculoskeletal History - 3 CRACKED VERTABRAES MID BACK SINCE 1979 PER PATIENT Sensory History: Reports: Hx Cataracts - BILATERAL, Hx Contacts or Glasses - GLASSES Denies: Hx Hearing Aid Opthamlomology History: Reports: Hx Cataracts - BILATERAL, Hx Contacts or Glasses - GLASSES Neurological History: Denies: Other Neuro Impairments/Disorders Psychiatric History: Denies: Hx Panic Disorder - Cancer History Cancer Type, Location and Year: thyroid Hx Chemotherapy: No Hx Radiation Therapy: No - Surgical History Surgery Procedure, Year, and Place: hysterectomy 1979-. 09/21/15-12/22/15 BILATERAL KNEE REPLACEMENTS. bilateral carpal tunnel. lt knee surgery. cosmetic ear surgery but did not work per pt. thyroid removal due to ca. LEFT hip replacement Hx Anesthesia Reactions: No Infectious Disease History: No Infectious Disease History: Denies: Traveled Outside the [place] in Last 30 Days - Family History Known Family History: Positive: Cardiac Disease, Respiratory Disease - Social History Alcohol Use: None Hx Substance Use: No Substance Use Type: Reports: None Hx Tobacco Use: Yes Smoking Status (MU): Light Every Day Tobacco Smoker Type: Cigarettes Amount Used/How Often: 1 PACK EVERY 3-4 DAYS X 48 YEARS Length of Time of Smoking/Using Tobacco: > 40 years Have You Smoked in the Last Year: Yes Review of Systems - ROS Summary Review of Systems Summary: Home Medications Medication Instructions Recorded Confirmed Type Levothyroxine TAB* [Synthroid 150 150 mcg PO QAM 03/20/19 10/23/19 History MCG TAB*] Albuterol HFA INHALER* [Ventolin 2 puff INH Q4H PRN #1 mdi 04/20/19 10/23/19 Rx HFA Inhaler*] Omeprazole (Nf) [Prilosec (NF)] 40 mg PO QAM 04/20/19 10/23/19 History oxyCODONE TAB* [Roxycodone TAB 5 10 mg PO Q6H PRN 06/05/19 10/23/19 History mg*] Albuterol 2.5MG/3ML (0.083%)* 2.5 mg INH Q6H PRN #1 packet 10/11/19 10/23/19 Rx [Ventolin 2.5 MG/3 ML NEB.MARIZA*] Sertraline* [Zoloft*] 50 mg PO DAILY 10/11/19 10/23/19 History celeCOXIB CAP* [CeleBREX CAP*] 200 mg PO DAILY WITH MEAL 10/11/19 10/23/19 History Negative: Fever Negative: Chest Pain Positive: Shortness Of Breath, Cough All Other Systems Reviewed And Are Negative: Yes Physical Exam - Summary Physical Exam Summary: General: Obese FEMALE who appears in mild respirator discomfort HEENT: Normocephalic, Atraumatic. Eyes: Conjuctiva normal, PERRL. Oropharynx: Clear, mucous membranes moist, (-) exudates. Neck: Soft, FROM, (-) lymphadenopathy, (-) thyromegaly, (-) JVD. Cardiovascular: Normal sinus rhythm, (-) murmur. Lungs: Decreased breath sounds bilaterally, mild wheezing throughout Abdomen: Soft, non-tender, non-distended, (-) organomegaly, normal bowel sounds. Back: (-) CVA tenderness Extremities: 1+ edema Skin: Warm, dry, (-) rash. Neuro: Alert and oriented x3, no focal deficits. Psychiatric: Mood normal, affect normal. Triage Information Reviewed: Yes Vital Signs On Initial Exam: Initial Vitals Temp Pulse Resp BP Pulse Ox 98.8 F 93 22 146/82 96 10/23/19 22:11 10/23/19 22:11 10/23/19 22:11 10/23/19 22:11 10/23/19 22:11 Vital Signs Reviewed: Yes Procedures - Sedation Patient Received Moderate/Deep Sedation with Procedure: No Diagnostics - Vital Signs Vital Signs Temp Pulse Resp BP Pulse Ox 10/23/19 22:11 98.8 F 93 22 146/82 96 - Laboratory Result Diagrams: 10/23/19 22:31 10/23/19 22:31 Lab Statement: Any lab studies that have been ordered have been reviewed, and results considered in the medical decision making process. - Radiology CXR Radiology Interpretation Completed By: Radiologist Summary of Radiographic Findings: Mild peribronchial cuffing could be seen in the setting of inflammatory lung disease. ED PHYSICIAN HAS REVIEWED THIS REPORT. - EKG 2216 Cardiac Rate: NL - 88 BPM EKG Rhythm: Sinus Rhythm Summary of EKG Findings: EKG at 2217 reveals normal sinus rhythm with rate of 88 BPM, no acute changes, no ischemic changes. This EKG was reviewed and interpreted by Dr. Cazares. Re-Evaluation - Re-Evaluation First Eval Re-Evaluation Time: 00:33 Change: Improved Comment: I have discussed results with the patient and symptoms have resolved. Discussed symptoms that warrant immediate return to ED. Course/Dx - Course Course Of Treatment: 64-year-old female presents from home by ambulance with shortness of breath. Patient states she was recently seen and diagnosed with pneumonia. Has been home. Today feels as if she is more short of breath. Took prednisone 40 mg for 5 days. Antibiotics. Today she tried her albuterol nebulizer multiple times without relief. She states the oxygen helps her feel better but has not been able to get her insurance to pay for it at home. On workup today was no obvious pneumonia on x-ray. Patient was given Solu-Medrol, DuoNeb. Still complains of pain and coughing which is nonproductive. Patient' s O2 sat remains at 90 even off oxygen. ABG shows no significant abnormality. Patient discharged home on Tessalon Perles. Recommended humidified air. Prednisone 60 for 5 days. Albuterol nebulizers as needed. Follow-up with PCP. Follow up sooner for any worsening symptoms. - Diagnoses Provider Diagnoses: COPD exacerbation Discharge ED - Sign-Out/Discharge Documenting (check all that apply): Patient Departure - Discharge Plan Condition: Stable Disposition: HOME Prescriptions: Benzonatate CAP* [Tessalon 100 MG CAP*] 100 mg PO TID #15 cap predniSONE [Prednisone 20 MG TAB] 60 mg PO DAILY 5 Days tablet Tramadol 50 MG # 6 TAB PREPAK 6 mg PO Q6HR #20 tab MDD 4 Patient Education Materials: COPD (Chronic Obstructive Pulmonary Disease) (ED) [facility]errals: [facility] [Outside] - 3 Days Additional Instructions: Follow up with [facility] in 3 days. Return to the Emergency Department for new or worsening symptoms. - Billing Disposition and Condition Condition: STABLE Disposition: Home - Attestation Statements Document Initiated by Scribe: Yes Documenting Scribe: Karen Parker Provider For Whom Scribe is Documenting (Include Credential): Sarah Cazares MD Scribe Attestation: I, Karen Parker, scribed for Sarah Cazares MD on 10/24/19 at 0108. Scribe Documentation Reviewed: Yes Provider Attestation: The documentation as recorded by the scribe, Karen Parker accurately reflects the service I personally performed and the decisions made by me, Sarah Cazares MD Status of Scribe Document: Viewed
[2019-10-23 22:45] LABS: ABS Basophils 0.1 10^3/ul (0-0.2); ABS Eosinophils 0.7 10^3/ul (0-0.6); ABS Lymphocytes 4.2 10^3/ul (1.0-4.8); ABS Monocytes 1.2 10^3/ul (0-0.8); ABS Neutrophils 7.1 10^3/ul (1.5-7.7); Eosinophil % 5.6 %; Hematocrit 38 % (35-47); Lymphocyte % 31.7 %; Mean Corpuscular HGB Conc 34 g/dL (31-36); Mean Corpuscular Hemoglobin 30 pg (27-31); Mean Corpuscular Volume 87 fL (80-97); Mean Platelet Volume 7.6 fL (7.4-10.4); Nucleated Red Blood Cells % 0.1; Platelet Count 293 10^3/uL (150-450); Red Cell Distribution Width 14 % (10-15); White Blood Count 13.4 10^3/uL (3.5-10.8)
[2019-10-23 22:48] LABS: INR 1.03 (0.82-1.09)
[2019-10-23] MEDS ORDERED: Albuterol/Ipratropium NEB.SOL* Albuterol 2.5 MG/Ipratropium 0.5 MG 3 ML INH ONE (22:51)
[2019-10-23] MEDS ORDERED: Ketorolac INJ* 30 MG/ML 1 ML VIAL IV PUSH ONE (22:51)
[2019-10-23] MEDS ORDERED: methylPREDNISolone 125 MG* 2 ML VIAL IV ONE (22:54)
[2019-10-23 23:00] LABS: Albumin/Globulin Ratio 1.3 (1-3); BUN/Creatinine Ratio 11.7 (8-20); EGFR African American 72.3 (>60); EGFR Non-African American 59.8 (>60); Globulin 3.1 g/dL (2-4); Potassium 3.6 mmol/L (3.5-5.0); Total Bilirubin 0.3 mg/dL (0.2-1.0); Total Protein 7.1 g/dL (6.4-8.9)
[2019-10-23 23:02] LABS: Troponin I 0.01 ng/mL (<0.03)
[2019-10-24] MEDS ORDERED: traMADol TAB* 50 MG PO ONE (00:33)
[2019-10-24] MEDS ORDERED: Benzonatate CAP* 100 MG PO ONE (00:47)
[2019-10-24] MEDS ORDERED: Albuterol HFA INHALER* 8 gm MDI INH ONE (01:02)
[2019-10-24 01:33] VITALS: BP 119/72
== END 2019-10-24 01:10 | disposition home or self-care (01) ==
LOC: ED 22:08
DX: J44.1 Chronic obstructive pulmonary disease with (acute) exacerbation (principal); I44.4 Left anterior fascicular block; K21.9 Gastro-esophageal reflux disease without esophagitis; Z96.653 Presence of artificial knee joint, bilateral; Z96.642 Presence of left artificial hip joint; Z85.850 Personal history of malignant neoplasm of thyroid; Z88.6 Allergy status to analgesic agent; Z88.5 Allergy status to narcotic agent; Z88.0 Allergy status to penicillin; Z88.8 Allergy status to other drugs, medicaments and biological substances; Z82.49 Family history of ischemic heart disease and other diseases of the circulatory system; Z83.6 Family history of other diseases of the respiratory system; F17.210 Nicotine dependence, cigarettes, uncomplicated
CPT/HCPCS: 36415; 71045; 80053; 83605; 83880; 84484; 85025; 85610; 87040; 93005; 96374; 96375; 99283; A9270-GY; J1885; J2930

== ENCOUNTER 2020-06-21 22:28 | Observation (INO) ==
[2020-06-21 23:03] LABS: ABS Basophils 0.1 10^3/ul (0-0.2); ABS Eosinophils 0.6 10^3/ul (0-0.6); ABS Lymphocytes 3.2 10^3/ul (1.0-4.8); ABS Monocytes 1.1 10^3/ul (0-0.8); ABS Neutrophils 3.6 10^3/ul (1.5-7.7); Eosinophil % 6.7 %; Hematocrit 37 % (35-47); Hemoglobin 12.4 g/dL (12.0-16.0); Lymphocyte % 37.2 %; Mean Corpuscular HGB Conc 34 g/dL (31-36); Mean Corpuscular Hemoglobin 30 pg (27-31); Mean Corpuscular Volume 87 fL (80-97); Mean Platelet Volume 7.2 fL (7.4-10.4); Platelet Count 321 10^3/uL (150-450); Red Cell Distribution Width 14 % (10-15); White Blood Count 8.5 10^3/uL (3.5-10.8)
[2020-06-21] MEDS ORDERED: methylPREDNISolone 125 mg 2 ML VIAL IV ONE (23:13)
[2020-06-21] MEDS ORDERED: Albuterol/Ipratropium NEB.SOL (2.5/0.5 MG) 3 ML NEB.SOLN INH ONE (23:13)
[2020-06-21] MEDS ORDERED: NS 0.9% 1000 ml BAG 1,000 ML IV ONE (23:13)
[2020-06-21 23:23] LABS: Albumin 3.9 g/dL (3.2-5.2); Albumin/Globulin Ratio 1.2 (1-3); Calcium 8.1 mg/dL (8.6-10.3); EGFR African American 67.1 (>60); EGFR Non-African American 55.5 (>60); Globulin 3.2 g/dL (2-4); Potassium 3.8 mmol/L (3.5-5.0); Total Bilirubin 0.3 mg/dL (0.2-1.0); Total Protein 7.1 g/dL (6.4-8.9)
[2020-06-21 23:25] LABS: Troponin I 0.02 ng/mL (<0.03)
[2020-06-21] MEDS ORDERED: Iodixanol (CONTRAST) 320 MG/ML 100 ML SDV IV ONE (23:37)
[2020-06-21 23:38] LABS: Activated Partial Thrombo Time 30.5 seconds (26.0-38.0); INR 1.11 (0.82-1.09)
[2020-06-22] MEDS ORDERED: Albuterol HFA INHALER 8 gm MDI INH ONE (01:30)
[2020-06-22] MEDS ORDERED: Al Hydrox/Mg Hydrox/Simet LIQ 30 ML UDC PO PRN (03:09)
[2020-06-22] MEDS ORDERED: NS 0.9% 1000 ml BAG 1,000 ML IV SCH (03:15)
[2020-06-22] MEDS ORDERED: Albuterol HFA INHALER 8 gm MDI INH PRN (03:17)
[2020-06-22 03:44] LABS: C Reactive Protein 7.25 mg/L (<8.01)
[2020-06-22 03:54] LABS: TSH Ultra Thyroid Stim Horm 1.19 mcIU/mL (0.34-5.60)
[2020-06-22] MEDS ORDERED: Enoxaparin 40 MG/0.4 ML SYR SUBCUT SCH (06:00)
[2020-06-22] MEDS: SPIRIVA Respimat (tiotropium) 2.5 mcg/inh Inhaler INH SCH ×2 (08:22→09:57)
[2020-06-22 12:07] VITALS: BP 144/65
== END 2020-06-22 13:50 | disposition home or self-care (01) ==
LOC: MED 22:28 → ED 22:28
PROVIDERS: ADMIT Pediatrics; ATTEND Internal Medicine

== ENCOUNTER 2024-01-28 05:18 | Inpatient (IN) ==
[2024-01-28 05:52] LABS: ABS Monocytes 1.2 10^3/uL (0.0-0.9); ABS Neutrophils 10.6 10^3/uL (1.5-7.6); ABS Nucleated RBC 0.01 10^3/ul; Eosinophil % 0.1 %; Hematocrit 40.2 % (35-45); Hemoglobin 13.7 g/dL (11.5-14.3); Lymphocyte % 7.9 %; Mean Corpuscular Hemoglobin 29.8 pg (27-33); Mean Corpuscular Hgb Conc 34.1 g/dL (31-36); Mean Corpuscular Volume 87.3 fL (80-97); Mean Platelet Volume 7.3 fL (7.5-11.2); Nucleated Red Blood Cells % 0.1 %/100WBC (0.0-0.8); Platelet Count 310 10^3/uL (150-450); Red Blood Count 4.61 10^6/uL (3.63-4.92); Red Cell Distribution Width 13.8 % (12-17); White Blood Count 12.8 10^3/uL (3.8-11.8)
[2024-01-28] MEDS: Albuterol 2.5mg/3 ml (0.083%) NEB.SOLN INH SCH (06:07)
[2024-01-28 06:43] LABS: Albumin 4.2 g/dL (3.2-5.2); Albumin/Globulin Ratio 1.4 (1-3); C Reactive Protein 3.75 mg/L (<8.01); Creatinine, Serum 0.92 mg/dL (0.51-0.95); Globulin 3.1 g/dL (2-4); Potassium 4.1 mmol/L (3.5-5.0); Total Bilirubin 0.3 mg/dL (0.2-1.0); Total Protein 7.3 g/dL (6.4-8.9); eGFR CKD-EPI 67.4 (>60)
[2024-01-28] MEDS: cefTRIAXone 1 gm/50 mL D5W 1 GM/50 ML BAG IV ONE (06:54)
[2024-01-28 07:01] LABS: PCO2 Arterial 47 mmHg (35-45); PO2 Arterial 141 mmHg (80-100)
[2024-01-28] MEDS ORDERED: cefTRIAXone 1 gm/50 mL D5W 1 GM/50 ML BAG IV ONE (10:00)
[2024-01-28] MEDS: Albuterol/Ipratropium NEB.SOL (2.5/0.5 MG) 3 ML NEB.SOLN INH SCH (10:28)
[2024-01-28] MEDS: Enoxaparin 40 MG/0.4 ML SYR SUBCUT SCH (10:45)
[2024-01-28] MEDS: DOXYcycline 100 MG in NS 0.9% 250 ml 250 ML IVPB SCH (10:45)
[2024-01-28] MEDS: methylPREDNISolone SOD SUCC 40 mg/ml 1 ml VIAL IV SCH ×2 (11:43→14:28)
[2024-01-28] MEDS: Morphine 2 MG/ML SYRINGE IV PRN (12:32)
[2024-01-28] MEDS: Morphine 2 MG/ML SYRINGE ONE (12:33)
[2024-01-28] MEDS: Ondansetron 4 mg VIAL 2 MG/ML 2 ml VIAL IV PRN (12:40)
[2024-01-28] MEDS: Ondansetron 4 mg VIAL 2 MG/ML 2 ml VIAL ONE (12:43)
[2024-01-28] MEDS: HYDROmorphone 0.5 MG/0.5 ML SYRINGE IV PRN (14:23)
[2024-01-28] MEDS: HYDROmorphone 0.5 MG/0.5 ML SYRINGE ONE (14:26)
[2024-01-29 04:31] LABS: ABS Lymphocytes 0.9 10^3/uL (1.0-4.8); ABS Monocytes 0.9 10^3/uL (0.0-0.9); ABS Neutrophils 9.2 10^3/uL (1.5-7.6); ABS Nucleated RBC 0.02 10^3/ul; Hematocrit 41.5 % (35-45); Hemoglobin 13.7 g/dL (11.5-14.3); Lymphocyte % 7.8 %; Mean Corpuscular Hemoglobin 29.5 pg (27-33); Mean Corpuscular Hgb Conc 33.1 g/dL (31-36); Mean Corpuscular Volume 89.2 fL (80-97); Mean Platelet Volume 7.6 fL (7.5-11.2); Nucleated Red Blood Cells % 0.2 %/100WBC (0.0-0.8); Platelet Count 290 10^3/uL (150-450); Red Blood Count 4.65 10^6/uL (3.63-4.92)
[2024-01-29 05:21] LABS: Anion Gap 7 mmol/L (2-16); Blood Urea Nitrogen 24 mg/dL (6-24); CO2 Carbon Dioxide 26 mmol/L (22-32); Calcium 7.5 mg/dL (8.6-10.3); Chloride 106 mmol/L (101-111); Creatinine, Serum 0.89 mg/dL (0.51-0.95); Glucose 133 mg/dL (70-100); Magnesium 2.5 mg/dL (1.9-2.7); Sodium 139 mmol/L (135-145); eGFR CKD-EPI 70.1 (>60)
[2024-01-29] MEDS: Magnesium Sulfate 2 gm BAG 2 GM/50 ML BAG IVPB ONE (08:59)
[2024-01-29] MEDS ORDERED: cefTRIAXone 2 gm/50 mL D5W 2 GM/50 ML BAG IV SCH (10:00)
[2024-01-29] MEDS: cefTRIAXone 1 gm/50 mL D5W 1 GM/50 ML BAG IV SCH (10:23)
[2024-01-29] MEDS: Albuterol/Ipratropium NEB.SOL (2.5/0.5 MG) 3 ML NEB.SOLN ONE (19:54)
[2024-01-30 05:35] LABS: ABS Lymphocytes 1.3 10^3/uL (1.0-4.8); ABS Monocytes 1.1 10^3/uL (0.0-0.9); ABS Neutrophils 6.6 10^3/uL (1.5-7.6); Hematocrit 40.2 % (35-45); Hemoglobin 13.5 g/dL (11.5-14.3); Lymphocyte % 14.3 %; Mean Corpuscular Hemoglobin 29.7 pg (27-33); Mean Corpuscular Hgb Conc 33.7 g/dL (31-36); Mean Corpuscular Volume 88.2 fL (80-97); Mean Platelet Volume 7.4 fL (7.5-11.2); Platelet Count 240 10^3/uL (150-450); Red Blood Count 4.56 10^6/uL (3.63-4.92); White Blood Count 8.9 10^3/uL (3.8-11.8)
[2024-01-30 05:54] LABS: Calcium 7.5 mg/dL (8.6-10.3); Creatinine, Serum 0.92 mg/dL (0.51-0.95); Magnesium 2.9 mg/dL (1.9-2.7); Potassium 4.5 mmol/L (3.5-5.0); eGFR CKD-EPI 67.4 (>60)
[2024-01-31 05:58] LABS: ABS Lymphocytes 1.2 10^3/uL (1.0-4.8); ABS Monocytes 0.8 10^3/uL (0.0-0.9); Hematocrit 38.6 % (35-45); Hemoglobin 12.8 g/dL (11.5-14.3); Lymphocyte % 12.9 %; Mean Corpuscular Hemoglobin 29.6 pg (27-33); Mean Corpuscular Hgb Conc 33.2 g/dL (31-36); Mean Platelet Volume 7.6 fL (7.5-11.2); Platelet Count 178 10^3/uL (150-450); Red Blood Count 4.34 10^6/uL (3.63-4.92)
[2024-01-31 07:59] LABS: Magnesium 1.3 mg/dL (1.9-2.7); Sodium 138 mmol/L (135-145)
[2024-01-31 08:00] LABS: Blood Urea Nitrogen 31 mg/dL (6-24); CO2 Carbon Dioxide 19 mmol/L (22-32); Chloride 105 mmol/L (101-111); Creatinine, Serum 0.85 mg/dL (0.51-0.95); Glucose 169 mg/dL (70-100); eGFR CKD-EPI 74.1 (>60)
[2024-01-31 08:18] LABS: Anion Gap 14 mmol/L (2-16)
[2024-01-31] MEDS: Acetaminophen IV 1 GM/100ML 1,000 MG/100 ML BAG IV PRN (09:25)
[2024-01-31] MEDS: Magnesium Sulf 4 GM/100 ML IV 4,000 MG/100 ML BAG IVPB ONE (10:25)
[2024-01-31 12:08] LABS: Anion Gap 10 mmol/L (2-16); Blood Urea Nitrogen 26 mg/dL (6-24); CO2 Carbon Dioxide 25 mmol/L (22-32); Calcium 6.8 mg/dL (8.6-10.3); Chloride 98 mmol/L (101-111); Glucose 346 mg/dL (70-100); Sodium 133 mmol/L (135-145); eGFR CKD-EPI 93.6 (>60)
[2024-01-31] MEDS ORDERED: Albuterol/Ipratropium NEB.SOL (2.5/0.5 MG) 3 ML NEB.SOLN INH PRN (14:22)
[2024-01-31] MEDS: methylPREDNISolone SOD SUCC 40 mg/ml 1 ml VIAL IV SCH (20:22)
[2024-01-31] MEDS: Albuterol 2.5mg/3 ml (0.083%) NEB.SOLN INH PRN (20:41)
[2024-01-31 22:23] LABS: ALT 22 U/L (7-52); Albumin 3.7 g/dL (3.2-5.2); Albumin/Globulin Ratio 1.2 (1-3); Alkaline Phosphatase 40 U/L (35-149); Anion Gap 6 mmol/L (2-16); Blood Urea Nitrogen 28 mg/dL (6-24); CO2 Carbon Dioxide 25 mmol/L (22-32); Calcium 7.6 mg/dL (8.6-10.3); Chloride 107 mmol/L (101-111); Creatinine, Serum 0.73 mg/dL (0.51-0.95); Glucose 129 mg/dL (70-100); Sodium 138 mmol/L (135-145); Total Bilirubin 0.4 mg/dL (0.2-1.0); Total Protein 6.7 g/dL (6.4-8.9)
[2024-01-31 23:15] LABS: Magnesium 2.9 mg/dL (1.9-2.7)
[2024-02-01 06:03] LABS: ABS Lymphocytes 1.7 10^3/uL (1.0-4.8); ABS Neutrophils 7.2 10^3/uL (1.5-7.6); ABS Nucleated RBC 0.02 10^3/ul; Hematocrit 38.6 % (35-45); Hemoglobin 13.3 g/dL (11.5-14.3); Lymphocyte % 17.5 %; Mean Corpuscular Hemoglobin 30.1 pg (27-33); Mean Corpuscular Hgb Conc 34.6 g/dL (31-36); Mean Corpuscular Volume 87.1 fL (80-97); Mean Platelet Volume 7.7 fL (7.5-11.2); Nucleated Red Blood Cells % 0.2 %/100WBC (0.0-0.8); Platelet Count 238 10^3/uL (150-450); Red Blood Count 4.43 10^6/uL (3.63-4.92); Red Cell Distribution Width 13.5 % (12-17); White Blood Count 9.9 10^3/uL (3.8-11.8)
[2024-02-01 07:37] LABS: Calcium 7.4 mg/dL (8.6-10.3); Creatinine, Serum 0.73 mg/dL (0.51-0.95); Magnesium 2.6 mg/dL (1.9-2.7); Potassium 4.4 mmol/L (3.5-5.0)
[2024-02-01] MEDS: Albuterol HFA INHALER 8 gm MDI INH SCH (07:49)
[2024-02-01] MEDS: Albuterol/Ipratropium NEB.SOL (2.5/0.5 MG) 3 ML NEB.SOLN INH SCH ×2 (11:52→19:21)
[2024-02-01] MEDS ORDERED: Albuterol/Ipratropium NEB.SOL (2.5/0.5 MG) 3 ML NEB.SOLN INH SCH (15:00)
[2024-02-01] MEDS: Albuterol HFA INHALER 8 gm MDI INH PRN (15:01)
[2024-02-02 09:56] VITALS: BP 143/63
== END 2024-02-02 11:14 | disposition home or self-care (01) | DRG 193 ==
LOC: ED 05:18 → EDHOLD 07:19 → SUATTDRO 07:19 → ICU 07:47 → MED 01-31 09:51
PROVIDERS: ADMIT Student in an Organized Health Care Education/Training Program; ATTEND Student in an Organized Health Care Education/Training Program